=== PATIENT | male | born 1950 | race Caucasian/White ===

== ENCOUNTER 2017-01-11 08:11 | Inpatient (IN) | payer OTHER, MEDICARE ==
[~2017-01-11] VITALS: Ht 175.3 cm; Wt 90.7 kg
[2017-01-13] MEDS ORDERED: DICL75TA PO (14:42)
[2017-01-13] MEDS ORDERED: ASPI81TA11 PO (14:42)
[2017-01-13] MEDS ORDERED: TERA5CAP3 PO (14:42)
[2017-01-13] MEDS ORDERED: LEVO100T5 PO (14:42)
[2017-01-13] MEDS ORDERED: RANI150T PO (14:42)
[2017-01-13] MEDS ORDERED: GLUC15009 PO (14:42)
[2017-01-13] MEDS ORDERED: LISI10TA3 PO (14:42)
[2017-01-13] MEDS ORDERED: MULTTAB23 PO (14:42)
[2017-01-13] MEDS ORDERED: BUPR75TA PO (14:42)
[2017-01-13] MEDS ORDERED: GNP5TAB6 PO (14:42)
[2017-01-13] MEDS ORDERED: TRAM50TA PO (14:42)
[2017-01-13] MEDS ORDERED: GABA800T PO (14:42)
[2017-01-13] MEDS ORDERED: OMEGCAP19 PO (14:42)
[2017-01-13] MEDS ORDERED: MIRA33504 PO (14:42)
[2017-01-13] MEDS ORDERED: MAGN1TAB14 PO (14:42)
[2017-01-13] MEDS ORDERED: SERT-129 PO (14:42)
[2017-01-16] MEDS ORDERED: HYDR-3366 PO (07:05)
[2017-01-16] MEDS ORDERED: ASPI81CH37 CHEW (07:06)
[2017-01-16] MEDS ORDERED: ENOX40P SQ (07:06)
[2017-01-16] MEDS ORDERED: ALUMINUM/MAGNESIUM/SIMETH 30 ML CUP PO PRN (07:15)
[2017-01-16] MEDS ORDERED: NALOXONE HCL 0.4 MG/ML AMP IV PRN (07:15)
[2017-01-16] MEDS ORDERED: diphenhydrAMINE HCL 50 MG/ML VIAL IV PRN (07:15)
[2017-01-16] MEDS ORDERED: SODIUM CHLORIDE 0.9% FLUSH 5 ML FLUSH IVF PRN (07:15)
[2017-01-16] MEDS ORDERED: ONDANSETRON HCL 4 MG/2 ML VIAL IVP PRN (07:15)
[2017-01-16] MEDS ORDERED: HYDROmorphone HCL PF 2 MG/ML VIAL IV PRN (07:15)
[2017-01-16] MEDS ORDERED: Post-op Orders (for Pharmacy) MISC XX ONE (07:15)
[2017-01-16] MEDS ORDERED: PREV10CA IV (07:54)
[2017-01-16] MEDS ORDERED: PREVAGIN IV (07:54)
[2017-01-16 07:56] VITALS: BP 148/86; PULSE 70; RESP 20; TEMP 98.1; O2SAT 98
[2017-01-16] MEDS: CHLORHEXIDINE GLUCONATE 4% SOLN 120 ML BTL TOPICAL SCH (08:00)
[2017-01-16] MEDS ORDERED: SODIUM CHLORID 0.9% 500 ML IV PRN (08:00)
[2017-01-16] MEDS ORDERED: METOPROLOL TARTRATE 25 MG TAB PO PRN (08:00)
[2017-01-16] MEDS: ROPIVACAINE PERI-ARTICULAR INJECTION. P-ARTICULR SCH ×10 (08:00→10:55)
[2017-01-16] MEDS ORDERED: DEXAMETHASONE SOD PHOS 20 MG/5 ML VIAL IV ONE (08:00)
[2017-01-16] MEDS ORDERED: LACTATED RINGER'S 1000 ML IV PRN (08:00)
[2017-01-16] MEDS ORDERED: INSULIN HUMAN REGULAR 1,000 UNITS/10 ML VIAL SQ PRN (08:00)
[2017-01-16] MEDS: POVIDONE IODINE 7.5% SCRUB 118 ML BOTTLE TOPICAL SCH (08:00)
[2017-01-16] MEDS ORDERED: CHLORHEXIDINE GLUCONATE 2 % 1 PACK (2 CLOTHS) TOPICAL PRN (08:00)
[2017-01-16] MEDS: TRANEXAMIC ACID IV SCH ×2 (08:00→10:35)
[2017-01-16] MEDS: SODIUM CHLORIDE 0.9% IV SCH ×2 (08:00→10:35)
[2017-01-16] MEDS: TRANEXAMIC PERI-ARTICULAR 3,000 MG/NS 100 ML P-ARTICULR SCH ×4 (08:00→10:55)
[2017-01-16] MEDS ORDERED: ceFAZolin 2 GM PREMIX 50 ML IV SCH (08:00)
[2017-01-16] MEDS ORDERED: VANCOMYCIN 1000 MG/NS 250 ML (for <70 kg) IV SCH ×2 (08:00)
[2017-01-16] MEDS: POVIDONE IODINE 5% (ANTISEPSIS KIT) 4 APPLICATIONS EACH NARE PRN (08:20)
[2017-01-16] MEDS ORDERED: GENTAMICIN SULFATE 80 MG/2 ML VIAL ONE (09:44)
[2017-01-16] MEDS ORDERED: FAMOTIDINE 20 MG/2 ML VIAL ONE (09:46)
[2017-01-16] MEDS ORDERED: MIDAZOLAM HCL 5 MG/5 ML VIAL ONE (09:46)
[2017-01-16] MEDS ORDERED: ACETAMINOPHEN 1000 MG/100 ML VIAL IV ONE (09:46)
[2017-01-16] MEDS ORDERED: DEXAMETHASONE SOD PHOS 4 MG/ML VIAL ONE (09:47)
[2017-01-16] MEDS ORDERED: fentaNYL CITRATE 250 MCG/5 ML AMP ONE ×2 (09:47→12:44)
[2017-01-16] MEDS ORDERED: NEOSTIGMINE 3 MG/3 ML SYR IV ONE (12:49)
[2017-01-16] MEDS ORDERED: ONDANSETRON HCL 4 MG/2 ML VIAL IV PUSH ONE (12:49)
[2017-01-16] MEDS ORDERED: PROPOFOL 200 MG/20 ML AMP IV ONE (12:49)
[2017-01-16] MEDS ORDERED: *MEPERIDINE 25 MG INJ VIAL PERIprocedural Use ONLY ONE (12:49)
[2017-01-16] MEDS ORDERED: *ONDANSETRON 4 MG VIAL PERIprocedural Use ONLY ONE (12:49)
[2017-01-16] MEDS ORDERED: LACTATED RINGER'S 1000 ML INJ 1,000 ML IV ONE (12:50)
--- NOTE | 2017-01-16 13:09 | HHI.DCPOC ---
Discharge Care Plan Diagnosis: (1) Primary localized osteoarthrosis, lower leg Your Health Problems Are: Difficulty with ADL Goals to Promote Your Health * To prevent worsening of your condition and complications * To maintain your health at the optimal level Directions to Meet Your Goals Take your medications as prescribed Follow your dietary instruction Follow activity as directed Keep your appointments as scheduled Take your immunizations and boosters as scheduled If your symptoms worsen call your PCP, if no PCP go to Urgent Care Center or Emergency Room Smoking is Dangerous to Your Health. Avoid second hand smoke Call the 24-hour hour crisis hotline for domestic abuse at [facility] Jan 16, 2017 13:09
[2017-01-16] MEDS ORDERED: COMMODE 3-IN-11 MIS (13:11)
[2017-01-16] MEDS ORDERED: WALKER WHEELS/F1 MIS (13:11)
[2017-01-16] MEDS ORDERED: CPMMACHINE (13:12)
[2017-01-16] MEDS ORDERED: *morphine SULFATE 8 MG/ML PERIprocedure ONLY ONE ×2 (13:12→13:28)
--- NOTE | 2017-01-16 13:30 | RADRPT ---
EXAM DATE/TIME: 01/16/2017 12:39 [place] COMPARISON: No previous studies available for comparison. INDICATIONS : Post op right knee replacement. MEDICAL HISTORY : None. SURGICAL HISTORY : None. ENCOUNTER: Initial ACUITY: 1 day PAIN SCORE: Non-responsive. LOCATION: Right knee. FINDINGS: AP and lateral views of the right knee were obtained and demonstrate that the patient is status post arthroplasty. The femoral and tibial component are intact and in normal alignment. There are postoper ative changes involving the patella. There is anterior soft tissue swelling with multiple gas bubbles . Board Certified Radiologist. This report was verified electronically. CONCLUSION: Expected postoperative changes status post arthroplasty. Jasiel Jones MD on January 16, 2017 at 13:28
[2017-01-16] MEDS ORDERED: DO NOT ADM ANY ANTICOAGULANT DRUGS PRN (13:45)
--- NOTE | 2017-01-16 14:18 | EKG ---
Date Performed: 01/16/2017 Time Performed: 07:34:12 PTAGE: 66 years EKG: Sinus rhythm NORMAL ECG NO PREVIOUS TRACING DOCTOR: Daniel Daniels Interpretating Date/Time 01/16/2017 14:17:22
[2017-01-16 14:40] VITALS: BP 130/68; PULSE 88; RESP 17; TEMP 97.3; O2SAT 99
[2017-01-16] MEDS: GABAPENTIN 400 MG CAP PO SCH ×2 (16:04→22:35)
[2017-01-16] MEDS: ceFAZolin 2 GM PREMIX 50 ML IV SCH ×2 (16:07→22:17)
--- NOTE | 2017-01-16 16:25 | PD.CONS ---
HPI Service [facility] Consult Requested By Dr. Christianson Reason for Consult medical management Primary Care Physician Mik Gonzalez M.D. 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 Patient seen in PACU. He c/o pain otherwise no complaints. Patient stated pain is in his usually location. [facility] consulted for medical management. Review of Systems Constitutional: DENIES: Diaphoretic episodes, Fatigue, Fever, Weight gain, Weight loss, Chills, Dizziness, Change in appetite, Night Sweats Endocrine: DENIES: Heat/cold intolerance, Polydipsia, Polyuria, Polyphagia Eyes: DENIES: Blurred vision, Diplopia, Eye inflammation, Eye pain, Vision loss , Photosensitivity, Double Vision Ears, nose, mouth, throat: DENIES: Tinnitus, Hearing loss, Vertigo, Nasal discharge, Oral lesions, Throat pain, Hoarseness, Ear Pain, Running Nose, Epistaxis, Sinus Pain, Toothache, Odynophagia Respiratory: DENIES: Apneas, Cough, Snoring, Wheezing, Hemoptysis, Sputum production, Shortness of breath Cardiovascular: DENIES: Chest pain, Palpitations, Syncope, Dyspnea on Exertion , PND, Lower Extremity Edema, Orthopnea, Claudication Gastrointestinal: DENIES: Abdominal pain, Black stools, Bloody stools, Constipation, Diarrhea, Nausea, Vomiting, Difficulty Swallowing, Anorexia Genitourinary: DENIES: Sexual dysfunction, Urinary frequency, Urinary incontinence, Urgency, Hematuria, Dysuria, Nocturia, Penile Discharge, Testicular Pain, Testicular Swelling Musculoskeletal: COMPLAINS OF: Joint pain, Back pain, DENIES: Muscle aches, Stiffness, Joint Swelling, Neck pain Integumentary: DENIES: Abnormal pigmentation, Nail changes, Pruritus, Rash Hematologic/lymphatic: DENIES: Bruising, Lymphadenopathy Immunologic/allergic: DENIES: Eczema, Urticaria Neurologic: DENIES: Abnormal gait, Headache, Localized weakness, Paresthesias, Seizures, Speech Problems, Tremor, Poor Balance Psychiatric: DENIES: Anxiety, Confusion, Mood changes, Depression, Hallucinations, Agitation, Suicidal Ideation, Homicidal Ideation, Delusions Past Family Social History Allergies: Coded Allergies: Ambien (Verified Allergy, Severe, Hallucinations, 01/16/17) Oxybutynin (Verified Allergy, Severe, Somnolence, 01/16/17) depression and suicidal ideations Uncoded Allergies: melons (Allergy, Severe, Anaphylaxis, 01/13/17) Past Medical History HTN, hypothyroidism, GERD, depression, chronic inflammation demyelinating polyneuropathy, OA of knee, lumbar spine ankylosis Past Surgical History scope of left knee in 2014 back surgery in 2009 LAMI and screws Reported Medications Reported Meds & Active Scripts Active Aspirin Low Dose (Aspirin) 81 Mg Chew 81 Mg CHEW BID Lovenox Inj (Enoxaparin Sodium) 40 Mg/0.4 Ml Syr 40 Mg SQ DAILY [place] (Hydrocodone-Acetaminophen) 10-325 Mg Tab 1 Tab PO Q4H PRN Reported [Prevagin] 45 Gm IV MONTHLY Miralax Powder (Polyethylene Glycol 3350 Powder) 17 Gm Powd 2.5 Gm PO DAILY Mix and dissolve one measuring cap-ful (17 grams) in water or juice. Tramadol (Tramadol HCl) 50 Mg Tab 100 Mg PO Q6H PRN Gnp Melatonin Maximum Str (Melatonin) 5 Mg Tab 1 Tab PO DAILY [place] 3-6-9 Complex ([place] 3 Fatty Acids-Anchor Point 6 FA) 1 Cap Cap 2 Cap PO DAILY Magnesium 400 Mg Tab 400 Mg PO DAILY Glucosamine 1,500 Mg Tab 1,500 Mg PO DAILY Multi For Him 50+ (Multiple Vitamins W/ Minerals) 1 Tab Tab 1 Tab PO DAILY Aspirin EC (Aspirin) 81 Mg Tabdr 81 Mg PO DAILY Ranitidine (Ranitidine HCl) 150 Mg Tab 150 Mg PO BID Diclofenac Sodium DR (Diclofenac Sodium) 75 Mg Tabdr 75 Mg PO BID Sertraline (Sertraline HCl) 100 Mg Tab 100 Mg PO DAILY Bupropion HCl 75 Mg Tab 150 Mg PO TID Gabapentin 800 Mg Tab 800 Mg PO TID Terazosin (Terazosin HCl) 5 Mg Cap 5 Mg PO TID Lisinopril 10 Mg Tab 10 Mg PO DAILY Levothyroxine (Levothyroxine Sodium) 100 Mcg Tab 100 Mcg PO DAILY Active Ordered Medications Current Medications Bupropion HCl (Wellbutrin) 150 mg TID PO ; Start 01/16/17 at 09:00 Gabapentin (Neurontin) 800 mg TID PO Last administered on 01/16/17t 16:04; Start 01/16/17 at 09:00 Levothyroxine Sodium (Synthroid) 100 mcg DAILY@06 PO ; Start 01/16/17 at 09:00 Lisinopril (Prinivil) 10 mg DAILY PO ; Start 01/16/17 at 09:00 Polyethylene Glycol (Miralax) 2.5 gm DAILY PO ; Start 01/16/17 at 09:00 Sertraline HCl (Zoloft) 100 mg DAILY PO ; Start 01/16/17 at 09:00 Terazosin HCl (Hytrin) 5 mg TID PO ; Start 01/16/17 at 09:00 Famotidine 20 mg 20 mg BID PO HRT; Start 01/16/17 at 09:00 Sodium Chloride (NS 1000 ml Inj) 1,000 ml @ 100 mls/hr Q10H IV ; Start at 07:02 IV Flush (NS Flush) 2 ml UNSCH PRN IVF FLUSH AFTER USING IV ACCESS; Start 01/16 at 07:15 IV Flush 2 ml 2 ml BID IVF ; Start 01/16/17 at 09:00 Cefazolin Sodium/ Dextrose (Ancef 2 Gm Premix) 50 ml @ 100 mls/hr Q6H IV Last administered on 01/16/17t 16:07; Start 01/16/17 at 15:00; Stop 01/17/17 at 03:29 Miscellaneous Information (Post-op Orders (for Pharmacy)) STAT ONCE XX ; Start 01/16/17 at 07:15; Stop 01/16/17 at 09:30; Status DC Enoxaparin Sodium (Lovenox Inj) 40 mg Q24H SQ ; Start 01/17/17 at 12:00 Hydromorphone HCl (Dilaudid Pf Inj) 1 mg Q3H PRN IV PAIN GREATER THAN 7; Start 01/16/17 at 07:15 Acetaminophen/ Hydrocodone Bitart ([place] 7.5-325 Mg) 1 tab Q4H PRN PO PAIN LESS THAN 5 ON SCALE; Start 01/16/17 at 07:15 Acetaminophen/ Hydrocodone Bitart ([place] 7.5-325 Mg) 2 tab Q4H PRN PO PAIN SCALE 5 TO 10; Start 01/16/17 at 07:15 Multivitamins/ Minerals Therapeutic (Theragran M Tab) 1 tab BID PO ; Start 01/17 at 21:00; Stop 03/18/17 at 20:59 Ondansetron HCl (Zofran Inj) 4 mg Q6H PRN IVP NAUSEA OR VOMITING; Start at 07:15 Al Hydrox/Mg Hydrox/Simethicone (Mag-Al Plus Susp Liq) 30 ml Q6H PRN PO INDIGESTION; Start 01/16/17 at 07:15 Naloxone HCl (Narcan Inj) 0.4 mg UNSCH PRN IV RESPIRATORY RATE LESS THAN 10; Start 01/16/17 at 07:15 Diphenhydramine HCl 25 mg 25 mg Q6H PRN IV ITCHING; Start 01/16/17 at 07:15 Lactated Ringer's 1,000 ml @ 30 mls/hr Q24H PRN IV SEE LABEL COMMENTS Last administered on 01/16/17 08:20; Start 01/16/17 at 08:00; Stop 01/19/17 at 07:59 Sodium Chloride (NS 500 ml Inj) 500 ml @ 30 mls/hr [id number] PRN IV SEE LABEL COMMENTS; Start 01/16/17 at 08:00; Stop 01/19/17 at 07:59 Metoprolol Tartrate (Lopressor) 25 mg METALLURGY TEACHER PRN PO SEE LABEL COMMENTS; Start 01/16/17 at 08:00; Stop 01/19/17 at 07:59 Povidone Iodine (Betadine 5% Antisepsis Kit) 1 applic METALLURGY TEACHER PRN EACH NARE SEE LABEL COMMENTS Last administered on 01/16/17 08:20; Start 01/16/17 at 08:00 ; Stop 01/19/17 at 07:59 Chlorhexidine Gluconate (Chlorhexidine 2% Cloth) 3 pack METALLURGY TEACHER PRN TOPICAL SEE LABEL COMMENTS Last administered on 01/16/17 08:21; Start 01/16/17 at 08:00 ; Stop 01/19/17 at 07:59 Insulin Human Regular (NovoLIN R INJ) See Protocol Table ... METALLURGY TEACHER PRN SQ SEE PROTOCOL TABLE; Start 01/16/17 at 08:00; Stop 01/19/17 at 07:59 Povidone Iodine (Betadine 7.5% Scrub) 1 applic ONCE TOPICAL ; Start 01/16/17 at 08:00; Stop 01/19/17 at 07:59 Chlorhexidine Gluconate 1 applic 1 applic ONCE TOPICAL Last administered on 08:00; Start 01/16/17 at 08:00; Stop 01/19/17 at 07:59 Cefazolin Sodium/ Dextrose 50 ml @ 100 mls/hr METALLURGY TEACHER IV Last administered on 01/16/17 08:50; Start 01/16/17 at 08:00; Stop 01/19/17 at 07:59 Vancomycin HCl 1000 mg/Sodium Chloride 250 ml @ 250 mls/hr METALLURGY TEACHER IV Last administered on 01/16/17 08:58; Start 01/16/17 at 08:00; Stop 01/19/17 at 07:59 Tranexamic Acid 1374 mg/Sodium Chloride 113.74 ml @ 200 mls/ hr ONCE IV Last administered on 01/16/17 10:35; Start 01/16/17 at 08:00; Stop 01/16/17 at 14:00 ; Status DC Ropivacaine 24.63 ml/Ketorolac Tromethamine 30 mg/Epinephrine HCl 0.5 mg/ Clonidine 80 mcg/ Sodium Chloride 100 ml @ 200 mls/hr ONCE P-ARTICULR Last administered on 01/16/17 10:55; Start 01/16/17 at 08:00; Stop 01/16/17 at 14:00 ; Status DC Tranexamic Acid/ Sodium Chloride (Cyklokapron Inj/ NS Inj) 130 ml @ 260 mls/hr ONCE P-ARTICULR Last administered on 01/16/17 10:55; Start 01/16/17 at 08:00; Stop 01/16/17 at 14:00; Status DC Dexamethasone Sodium Phosphate (Decadron Inj) 10 mg ONCE ONCE IV Last administered on 01/16/17 08:10; Start 01/16/17 at 08:00; Stop 01/16/17 at 08:01 ; Status DC Gentamicin Sulfate (Gentamicin Inj) 240 mg STK-MED ONCE .ROUTE Last administered on 01/16/17 10:55; Start 01/16/17 at 09:44; Stop 01/16/17 at 09:45 ; Status DC Acetaminophen (Ofirmev Inj) 1,000 mg STK-MED ONCE IV ; Start 01/16/17 at 09:46; Stop 01/16/17 at 09:47; Status DC Famotidine (Pepcid Inj) 20 mg STK-MED ONCE .ROUTE ; Start 01/16/17 at 09:46; Stop 01/16/17 at 09:47; Status DC Midazolam HCl (Versed Inj) 5 mg STK-MED ONCE .ROUTE ; Start 01/16/17 at 09:46; Stop 01/16/17 at 09:47; Status DC Fentanyl Citrate (fentaNYL INJ) 250 mcg STK-MED ONCE .ROUTE ; Start 01/16/17 at 09:47; Stop 01/16/17 at 09:48; Status DC Dexamethasone Sodium Phosphate (Decadron Inj) 4 mg STK-MED ONCE .ROUTE ; Start 01/16/17 at 09:47; Stop 01/16/17 at 09:48; Status DC Fentanyl Citrate (fentaNYL INJ) 500 mcg STK-MED ONCE .ROUTE ; Start 01/16/17 at 12:44; Stop 01/16/17 at 12:45; Status DC Meperidine HCl (*DEMEROL INJ PERIprocedural ONLY) 25 mg STK-MED ONCE .ROUTE Last administered on 01/16/17 12:49; Start 01/16/17 at 12:49; Stop 01/16/17 at 12:50; Status DC Ondansetron HCl (*ZOFRAN INJ PERIprocedural ONLY) 4 mg STK-MED ONCE .ROUTE Last administered on 01/16/17 12:49; Start 01/16/17 at 12:49; Stop 01/16/17 at 12:50; Status DC Morphine Sulfate (*morphine INJ PERIprocedure ONLY) 8 mg STK-MED ONCE .ROUTE Last administered on 01/16/17 13:12; Start 01/16/17 at 13:12; Stop 01/16/17 at 13:13; Status DC Morphine Sulfate (*morphine INJ PERIprocedure ONLY) 8 mg STK-MED ONCE .ROUTE Last administered on 01/16/17 13:28; Start 01/16/17 at 13:28; Stop 01/16/17 at 13:29; Status DC Miscellaneous Information ALL NURSING DEPARTME... UNSCH PRN .XX SEE LABEL COMMENTS; Start 01/16/17 at 13:45; Stop 01/17/17 at 13:44 Family History mother from suicide at age of 46. father had emphysema at age of 72. Social History lives at home. retired. stopped smoking 6 years ago. used to smoke 1 PPD. no alcohol or illicit drug use. Physical Exam Vital Signs Vital Signs Date Time Temp Pulse Resp B/P Pulse Ox O2 Delivery O2 Flow Rate FiO2 01/16/17 14:00 92 14 130/73 97 Nasal Cannula 3 01/16/17 13:30 98.2 92 14 135/78 97 Nasal Cannula 3 01/16/17 13:15 93 14 148/78 97 Nasal Cannula 3 01/16/17 13:00 93 14 143/84 97 Nasal Cannula 3 01/16/17 12:45 95 14 157/83 97 Nasal Cannula 3 01/16/17 12:33 98.4 101 14 153/76 97 Nasal Cannula 3 01/16/17 07:56 98.1 70 20 148/86 98 Physical Exam GENERAL: This is a well-nourished, well-developed patient, in no apparent distress. SKIN: No rashes, ecchymoses or lesions. Cool and dry. HEAD: Atraumatic. Normocephalic. No temporal or scalp tenderness. EYES: Pupils equal round and reactive. Extraocular motions intact. No scleral icterus. No injection or drainage. ENT: Nose without bleeding, purulent drainage or septal hematoma. Throat without erythema, tonsillar hypertrophy or exudate. Uvula midline. Airway patent. NECK: Trachea midline. No JVD or lymphadenopathy. Supple, nontender, no meningeal signs. CARDIOVASCULAR: Regular rate and rhythm without murmurs, gallops, or rubs. RESPIRATORY: Clear to auscultation. Breath sounds equal bilaterally. No wheezes , rales, or rhonchi. GASTROINTESTINAL: Abdomen soft, non-tender, nondistended. No hepato-splenomegaly , or palpable masses. No guarding. MUSCULOSKELETAL:right knee in splint. NEUROLOGICAL: Awake and alert. Cranial nerves II through XII intact. Motor and sensory grossly within normal limits. Five out of 5 muscle strength in all muscle groups. Normal speech. Laboratory Laboratory Tests Test 01/16/17 08:00 Blood Type A POSITIVE Antibody Screen NEGATIVE Blood Bank Comment Imaging Last Impressions Knee X-Ray 01/16/17 0702 Signed Impressions: Service Date/Time: Monday, January 16, 2017 12:39 - CONCLUSION: Expected postoperative changes status post arthroplasty. Jasiel Jones MD Assessment and Plan Assessment and Plan 66 y/o with severe post traumatic right knee OA -s/p total right knee arthroplasty -being managed by Ortho. HTN/depression. hypothyrodism/gerd/chronic pain/ chronic inflammation demyelinating polyneuropathy -home medication already resumed DVT prophylaxis per Ortho. Discussed Condition With patient Karol Kingston MD Jan 16, 2017 16:24
[2017-01-16 19:00] VITALS: BP 120/66; PULSE 66; RESP 16; TEMP 96.7; O2SAT 98
[2017-01-16 19:57] VITALS: O2SAT 99
[2017-01-16] MEDS: SODIUM CHLORIDE 0.9% FLUSH 5 ML FLUSH IVF SCH (21:00)
[2017-01-16] MEDS: FAMOTIDINE 20 MG TAB PO SCH (22:23)
[2017-01-16] MEDS: TERAZOSIN HCL 5 MG CAP PO SCH (22:35)
[2017-01-16] MEDS: buPROPion HCL 75 MG TAB PO SCH (22:35)
[2017-01-16] MEDS: ACETAMINOPHEN/HYDROcodone 325 MG/7.5 MG TAB PO PRN (22:36)
[2017-01-17] VITALS (9 sets, daily range): BP systolic 126–156; BP diastolic 60–73; PULSE 63–75; RESP 15–19; TEMP 96.7–98.4; O2SAT 95–100
[2017-01-17] MEDS: ACETAMINOPHEN/HYDROcodone 325 MG/7.5 MG TAB PO PRN ×6 (02:26→23:43)
[2017-01-17] MEDS: ceFAZolin 2 GM PREMIX 50 ML IV SCH (02:26)
[2017-01-17] MEDS: SODIUM CHLOR 0.9% 1000 ML INJ 1,000 ML IV SCH ×2 (03:02→23:02)
[2017-01-17 06:23] LABS: HEMATOCRIT 28.7 % (39.0-51.0); MEAN CELL VOLUME 93.9 FL (80.0-100.0); PLATELET COUNT 126 TH/MM3 (150-450); RED BLOOD COUNT 3.05 MIL/MM3 (4.50-5.90); RED CELL DISTRIBUTION WIDTH 13.4 % (11.6-17.2); REVIEW FLAG FINAL; WHITE BLOOD COUNT 8.1 TH/MM3 (4.0-11.0)
[2017-01-17] MEDS: LEVOTHYROXINE SODIUM 100 MCG TAB PO SCH (06:40)
[2017-01-17 06:41] LABS: BICARBONATE 27.6 MEQ/L (21.0-32.0); POTASSIUM 3.7 MEQ/L (3.5-5.1)
[2017-01-17] MEDS: CHLORHEXIDINE GLUCONATE 4% SOLN 120 ML BTL TOPICAL SCH (08:00)
[2017-01-17] MEDS: POVIDONE IODINE 7.5% SCRUB 118 ML BOTTLE TOPICAL SCH (08:00)
--- NOTE | 2017-01-17 08:28 | PD.ORT.PN ---
Subjective Post Op Day #: 1 Subjective Remarks pain in R knee tolerable. denies cp and sob. Objective Vitals Vital Signs Date Time Temp Pulse Resp B/P Pulse Ox O2 Delivery O2 Flow Rate FiO2 01/17/17 08:04 95 21 01/17/17 04:00 97.1 66 15 128/68 100 01/17/17 00:00 97.0 68 19 126/60 96 01/16/17 19:57 99 Nasal Cannula 3.00 01/16/17 19:00 96.7 66 16 120/66 98 01/16/17 14:40 97.3 88 17 130/68 99 01/16/17 14:00 92 14 130/73 97 Nasal Cannula 3 01/16/17 13:30 98.2 92 14 135/78 97 Nasal Cannula 3 01/16/17 13:15 93 14 148/78 97 Nasal Cannula 3 01/16/17 13:00 93 14 143/84 97 Nasal Cannula 3 01/16/17 12:45 95 14 157/83 97 Nasal Cannula 3 01/16/17 12:33 98.4 101 14 153/76 97 Nasal Cannula 3 I/O 01/16/17 01/16/17 01/16/17 01/17/17 01/17/17 01/17/17 07:00 15:00 23:00 07:00 15:00 23:00 Intake Total 1500 ml 480 ml 400 ml Output Total 800 ml 600 ml 600 ml Balance 700 ml -120 ml -200 ml Intake Oral 480 ml 400 ml Other 1500 ml Output Urine Total 700 ml 600 ml 600 ml Estimated Blood Loss 100 ml # Bowel Movements 0 Result Diagram: 01/17/17 0546 01/17/17 0546 Objective Remarks in bed, nad dressing c/d/i neg homans nvi Assessment & Plan Ortho Post Op Day #: 1 Problem List: Assessment and Plan s/p R TKA wbat daily dressing changes lovenox d/c planning to snf [id number] signed rx in chart f/up dr. arroyo 2 weeks [facility] Jan 17, 2017 08:28
--- NOTE | 2017-01-17 10:07 | HHI.PR ---
Subjective Remarks f/u for medical management patient c.o about pain of his right knee after doing physical therapy. he stated it is getting better. otherwise no complaints. denied any SOB or chest pain. Objective Vitals Vital Signs Date Time Temp Pulse Resp B/P Pulse Ox O2 Delivery O2 Flow Rate FiO2 01/17/17 08:04 95 21 01/17/17 08:00 96.7 63 18 126/65 96 01/17/17 04:00 97.1 66 15 128/68 100 01/17/17 00:00 97.0 68 19 126/60 96 01/16/17 19:57 99 Nasal Cannula 3.00 01/16/17 19:00 96.7 66 16 120/66 98 01/16/17 14:40 97.3 88 17 130/68 99 01/16/17 14:00 92 14 130/73 97 Nasal Cannula 3 01/16/17 13:30 98.2 92 14 135/78 97 Nasal Cannula 3 01/16/17 13:15 93 14 148/78 97 Nasal Cannula 3 01/16/17 13:00 93 14 143/84 97 Nasal Cannula 3 01/16/17 12:45 95 14 157/83 97 Nasal Cannula 3 01/16/17 12:33 98.4 101 14 153/76 97 Nasal Cannula 3 I/O 01/16/17 01/16/17 01/16/17 01/17/17 01/17/17 01/17/17 07:00 15:00 23:00 07:00 15:00 23:00 Intake Total 1500 ml 480 ml 400 ml Output Total 800 ml 600 ml 600 ml Balance 700 ml -120 ml -200 ml Intake Oral 480 ml 400 ml Other 1500 ml Output Urine Total 700 ml 600 ml 600 ml Estimated Blood Loss 100 ml # Bowel Movements 0 Result Diagram: 01/17/17 0546 01/17/17 0546 Objective Remarks GENERAL: in NAD and sitting comfortable in the chair. SKIN: Warm and dry. NECK: Supple, trachea midline. No JVD or lymphadenopathy. CARDIOVASCULAR: Regular rate and rhythm without murmurs, gallops, or rubs. RESPIRATORY: Breath sounds equal bilaterally. No accessory muscle use. GASTROINTESTINAL: Abdomen soft, non-tender, nondistended. MUSCULOSKELETAL:right knee in amber wrap. + 2 DP pulses. Medications and IVs Current Medications Bupropion HCl (Wellbutrin) 150 mg TID PO Last administered on 01/16/17 22:35; Start 01/16/17 at 09:00 Gabapentin (Neurontin) 800 mg TID PO Last administered on 01/16/17 22:35; Start 01/16/17 at 09:00 Levothyroxine Sodium (Synthroid) 100 mcg DAILY@06 PO Last administered on 06:40; Start 01/16/17 at 09:00 Lisinopril (Prinivil) 10 mg DAILY PO ; Start 01/16/17 at 09:00 Polyethylene Glycol (Miralax) 2.5 gm DAILY PO ; Start 01/16/17 at 09:00 Sertraline HCl (Zoloft) 100 mg DAILY PO ; Start 01/16/17 at 09:00 Terazosin HCl (Hytrin) 5 mg TID PO Last administered on 01/16/17 22:35; Start 01/16/17 at 09:00 Famotidine 20 mg 20 mg BID PO HRT Last administered on 01/16/17 22:23; Start at 09:00 Sodium Chloride (NS 1000 ml Inj) 1,000 ml @ 100 mls/hr Q10H IV Last administered on 01/17/17 03:02; Start 01/16/17 at 07:02 IV Flush (NS Flush) 2 ml UNSCH PRN IVF FLUSH AFTER USING IV ACCESS; Start 01/16 at 07:15 IV Flush 2 ml 2 ml BID IVF ; Start 01/16/17 at 09:00 Cefazolin Sodium/ Dextrose (Ancef 2 Gm Premix) 50 ml @ 100 mls/hr Q6H IV Last administered on 01/17/17 02:26; Start 01/16/17 at 15:00; Stop 01/17/17 at 03:29 ; Status DC Miscellaneous Information (Post-op Orders (for Pharmacy)) STAT ONCE XX ; Start 01/16/17 at 07:15; Stop 01/16/17 at 09:30; Status DC Enoxaparin Sodium (Lovenox Inj) 40 mg Q24H SQ ; Start 01/17/17 at 12:00 Hydromorphone HCl (Dilaudid Pf Inj) 1 mg Q3H PRN IV PAIN GREATER THAN 7; Start 01/16/17 at 07:15 Acetaminophen/ Hydrocodone Bitart ([place] 7.5-325 Mg) 1 tab Q4H PRN PO PAIN LESS THAN 5 ON SCALE Last administered on 01/17/17 06:46; Start 01/16/17 at 07: 15 Acetaminophen/ Hydrocodone Bitart ([place] 7.5-325 Mg) 2 tab Q4H PRN PO PAIN SCALE 5 TO 10; Start 01/16/17 at 07:15 Multivitamins/ Minerals Therapeutic (Theragran M Tab) 1 tab BID PO ; Start 01/17 at 21:00; Stop 03/18/17 at 20:59 Ondansetron HCl (Zofran Inj) 4 mg Q6H PRN IVP NAUSEA OR VOMITING; Start at 07:15 Al Hydrox/Mg Hydrox/Simethicone (Mag-Al Plus Susp Liq) 30 ml Q6H PRN PO INDIGESTION; Start 01/16/17 at 07:15 Naloxone HCl (Narcan Inj) 0.4 mg UNSCH PRN IV RESPIRATORY RATE LESS THAN 10; Start 01/16/17 at 07:15 Diphenhydramine HCl 25 mg 25 mg Q6H PRN IV ITCHING; Start 01/16/17 at 07:15 Lactated Ringer's 1,000 ml @ 30 mls/hr Q24H PRN IV SEE LABEL COMMENTS Last administered on 01/16/17 08:20; Start 01/16/17 at 08:00; Stop 01/19/17 at 07:59 Sodium Chloride (NS 500 ml Inj) 500 ml @ 30 mls/hr [id number] PRN IV SEE LABEL COMMENTS; Start 01/16/17 at 08:00; Stop 01/19/17 at 07:59 Metoprolol Tartrate (Lopressor) 25 mg ASSISTANT CORPORATE SECRETARY PRN PO SEE LABEL COMMENTS; Start 01/16/17 at 08:00; Stop 01/19/17 at 07:59 Povidone Iodine (Betadine 5% Antisepsis Kit) 1 applic ASSISTANT CORPORATE SECRETARY PRN EACH NARE SEE LABEL COMMENTS Last administered on 01/16/17 08:20; Start 01/16/17 at 08:00 ; Stop 01/19/17 at 07:59 Chlorhexidine Gluconate (Chlorhexidine 2% Cloth) 3 pack ASSISTANT CORPORATE SECRETARY PRN TOPICAL SEE LABEL COMMENTS Last administered on 01/16/17 08:21; Start 01/16/17 at 08:00 ; Stop 01/19/17 at 07:59 Insulin Human Regular (NovoLIN R INJ) See Protocol Table ... ASSISTANT CORPORATE SECRETARY PRN SQ SEE PROTOCOL TABLE; Start 01/16/17 at 08:00; Stop 01/19/17 at 07:59 Povidone Iodine (Betadine 7.5% Scrub) 1 applic ONCE TOPICAL ; Start 01/16/17 at 08:00; Stop 01/19/17 at 07:59 Chlorhexidine Gluconate 1 applic 1 applic ONCE TOPICAL Last administered on 08:00; Start 01/16/17 at 08:00; Stop 01/19/17 at 07:59 Cefazolin Sodium/ Dextrose 50 ml @ 100 mls/hr ASSISTANT CORPORATE SECRETARY IV Last administered on 01/16/17 08:50; Start 01/16/17 at 08:00; Stop 01/19/17 at 07:59 Vancomycin HCl 1000 mg/Sodium Chloride 250 ml @ 250 mls/hr ASSISTANT CORPORATE SECRETARY IV Last administered on 01/16/17 08:58; Start 01/16/17 at 08:00; Stop 01/19/17 at 07:59 Tranexamic Acid 1374 mg/Sodium Chloride 113.74 ml @ 200 mls/ hr ONCE IV Last administered on 01/16/17 10:35; Start 01/16/17 at 08:00; Stop 01/16/17 at 14:00 ; Status DC Ropivacaine 24.63 ml/Ketorolac Tromethamine 30 mg/Epinephrine HCl 0.5 mg/ Clonidine 80 mcg/ Sodium Chloride 100 ml @ 200 mls/hr ONCE P-ARTICULR Last administered on 01/16/17 10:55; Start 01/16/17 at 08:00; Stop 01/16/17 at 14:00 ; Status DC Tranexamic Acid/ Sodium Chloride (Cyklokapron Inj/ NS Inj) 130 ml @ 260 mls/hr ONCE P-ARTICULR Last administered on 01/16/17 10:55; Start 01/16/17 at 08:00; Stop 01/16/17 at 14:00; Status DC Dexamethasone Sodium Phosphate (Decadron Inj) 10 mg ONCE ONCE IV Last administered on 01/16/17 08:10; Start 01/16/17 at 08:00; Stop 01/16/17 at 08:01 ; Status DC Gentamicin Sulfate (Gentamicin Inj) 240 mg STK-MED ONCE .ROUTE Last administered on 01/16/17 10:55; Start 01/16/17 at 09:44; Stop 01/16/17 at 09:45 ; Status DC Acetaminophen (Ofirmev Inj) 1,000 mg STK-MED ONCE IV ; Start 01/16/17 at 09:46; Stop 01/16/17 at 09:47; Status DC Famotidine (Pepcid Inj) 20 mg STK-MED ONCE .ROUTE ; Start 01/16/17 at 09:46; Stop 01/16/17 at 09:47; Status DC Midazolam HCl (Versed Inj) 5 mg STK-MED ONCE .ROUTE ; Start 01/16/17 at 09:46; Stop 01/16/17 at 09:47; Status DC Fentanyl Citrate (fentaNYL INJ) 250 mcg STK-MED ONCE .ROUTE ; Start 01/16/17 at 09:47; Stop 01/16/17 at 09:48; Status DC Dexamethasone Sodium Phosphate (Decadron Inj) 4 mg STK-MED ONCE .ROUTE ; Start 01/16/17 at 09:47; Stop 01/16/17 at 09:48; Status DC Fentanyl Citrate (fentaNYL INJ) 500 mcg STK-MED ONCE .ROUTE ; Start 01/16/17 at 12:44; Stop 01/16/17 at 12:45; Status DC Meperidine HCl (*DEMEROL INJ PERIprocedural ONLY) 25 mg STK-MED ONCE .ROUTE Last administered on 01/16/17 12:49; Start 01/16/17 at 12:49; Stop 01/16/17 at 12:50; Status DC Ondansetron HCl (*ZOFRAN INJ PERIprocedural ONLY) 4 mg STK-MED ONCE .ROUTE Last administered on 01/16/17 12:49; Start 01/16/17 at 12:49; Stop 01/16/17 at 12:50; Status DC Morphine Sulfate (*morphine INJ PERIprocedure ONLY) 8 mg STK-MED ONCE .ROUTE Last administered on 01/16/17 13:12; Start 01/16/17 at 13:12; Stop 01/16/17 at 13:13; Status DC Morphine Sulfate (*morphine INJ PERIprocedure ONLY) 8 mg STK-MED ONCE .ROUTE Last administered on 01/16/17t 13:28; Start 01/16/17 at 13:28; Stop 01/16/17 at 13:29; Status DC Miscellaneous Information ALL NURSING DEPARTME... UNSCH PRN .XX SEE LABEL COMMENTS; Start 01/16/17 at 13:45; Stop 01/17/17 at 13:44 A/P Assessment and Plan 66 y/o with severe post traumatic right knee OA -s/p total right knee arthroplasty on 01/16POD #1 -being managed by Ortho. HTN/depression. hypothyrodism/gerd/chronic pain/ chronic inflammation demyelinating polyneuropathy -home medication already resumed DVT prophylaxis per Ortho. Discharge Planning patient is stable and medically clear for discharge. Karol Kingston MD Jan 17, 2017 10:07
[2017-01-17] MEDS: SERTRALINE HCL 100 MG TAB PO SCH ×2 (10:15→10:16)
[2017-01-17] MEDS: POLYETHYLENE GLYCOL 17 GM PKG PO SCH ×2 (10:15→10:16)
[2017-01-17] MEDS: LISINOPRIL 10 MG TAB PO SCH ×2 (10:15→10:17)
[2017-01-17] MEDS: GABAPENTIN 400 MG CAP PO SCH ×3 (10:16→19:42)
[2017-01-17] MEDS: buPROPion HCL 75 MG TAB PO SCH ×3 (10:16→19:42)
[2017-01-17] MEDS: TERAZOSIN HCL 5 MG CAP PO SCH ×3 (10:16→19:42)
[2017-01-17] MEDS: FAMOTIDINE 20 MG TAB PO SCH ×2 (10:17→21:08)
[2017-01-17] MEDS: SODIUM CHLORIDE 0.9% FLUSH 5 ML FLUSH IVF SCH ×2 (10:18→21:00)
--- NOTE | 2017-01-17 13:49 | HHI.PR ---
Objective Objective Results - Vital Signs Date Time Temp Pulse Resp B/P Pulse Ox O2 Delivery O2 Flow Rate FiO2 01/17/17 12:00 97.2 72 19 128/70 96 01/17/17 08:04 95 21 01/17/17 08:00 96.7 63 18 126/65 96 01/17/17 04:00 97.1 66 15 128/68 100 01/17/17 00:00 97.0 68 19 126/60 96 01/16/17 19:57 99 Nasal Cannula 3.00 01/16/17 19:00 96.7 66 16 120/66 98 01/16/17 14:40 97.3 88 17 130/68 99 01/16/17 14:00 92 14 130/73 97 Nasal Cannula 3 I/O 01/16/17 01/16/17 01/16/17 01/17/17 01/17/17 01/17/17 07:00 15:00 23:00 07:00 15:00 23:00 Intake Total 1500 ml 480 ml 400 ml Output Total 800 ml 600 ml 600 ml Balance 700 ml -120 ml -200 ml Intake Oral 480 ml 400 ml Other 1500 ml Output Urine Total 700 ml 600 ml 600 ml Estimated Blood Loss 100 ml # Bowel Movements 0 Result Diagram: 01/17/1746 01/17/17 0546 Physical Exam Physical Exam PHYSICAL EXAMINATION GENERAL: This is a well-developed, well-nourished male who appears to be in no acute distress. He is alert and awake, []. HEAD: Normocephalic without any lesion or mass noted. Facial features appear symmetric. OROPHARYNGEAL: Oropharynx without erythema or edema. NECK: Supple. No nuchal rigidity or lymphadenopathy. Trachea midline without deviation. CARDIAC: Regular rhythm, regular rate, S1 and S2 are heard. Murmur []; no gallops or rubs. LUNGS: Clear to auscultation bilaterally. [] wheeze, [] rhonchi or [] rale. No use of accessory muscles on inspiration or expiration. ABDOMEN: Soft, nontender, no organomegaly or masses. Bowel sounds are heard in all four quadrants. No rebound. No guarding. EXTREMITIES: [] edema. Pulses equal bilateral. [] cyanosis. NEUROLOGICAL: Patient mood and affect appropriate. No focal deficit SKIN:Warm and moist Carmen Valdovinos Jan 17, 2017 13:49
[2017-01-17] MEDS: ENOXAPARIN SODIUM 40 MG/0.4 ML SYRINGE SQ SCH (13:52)
--- NOTE | 2017-01-17 19:18 | MP ---
cc: KAILEE CONNORS DATE OF SURGERY: 01/16/2017 PREOPERATIVE DIAGNOSIS: Right knee osteoarthritis. POSTOPERATIVE DIAGNOSIS: Right knee osteoarthritis. OPERATION: Right total knee arthroplasty. SURGEON Dr. Kailee Connors AIRSET CASTER: SCOTT Gurrola ANESTHESIA General with femoral nerve block. ESTIMATED BLOOD LOSS: Less than 50 cc. COMPLICATIONS: None. TOURNIQUET TIME: 58 minutes, at 250 mmHg. IMPLANTS: DePuy Attune size 8, posterior stabilized femoral component size 7, rotating platform tibia baseplate, size 6 millimeter, polyethylene tibial insert size 38 millimeter patella. JUSTIFICATION: The patient is a 66-year-old male with history of severe end-stage osteoarthritis involving the right knee. He has severe disabling pain, standing, walking, ambulating, weightbearing activity, even pain at rest. He has failed greater than three months of nonoperative conservative treatment, to include medication, therapy, injections, ambulatory assistive aids, activity modification, weight loss attempt, x-ray of the right knee revealed severe end-stage osteoarthritis, [id number] joint space narrowing, subchondral sclerosis, subchondral cyst, osteophyte formation, varus deformity. The patient was counseled as to the risks, benefits and alternatives to total knee arthroplasty. The risks were discussed which include but not limited to anesthesia, bleeding, infection, damage to nerves and blood vessels, pain, stiffness, failure of the components, blood clot, pulmonary embolism, and even . The patient's pain was severe. He favored the benefits over the risks and did wish to proceed with surgery. PROCEDURE IN DETAIL A written consent was obtained. The patient was identified by name, taken to the operating room and placed supine on the operating table. General anesthesia was administered as well as 2 grams of IV Ancef and 1 gram of IV vancomycin. A well-padded tourniquet was placed on the right thigh. The right lower extremity was prepped and draped using isopropyl alcohol, Hibiclens solution and ChloraPrep solution. After time out was performed, the Esmarch bandage was used to exsanguinate the right lower extremity. The right lower extremity then had the tourniquet inflated to 250 mmHg. A longitudinal incision was made over the anterior aspect of the right knee. A medial parapatellar arthrotomy was performed. The patella was everted. 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 Patella resection guide was used to resect 9 millimeters of patella. A size 38 millimeter guide was placed. Three drill holes were placed and the 38 millimeter trial fit well. Attention was turned to the femur where an intramedullary guide wire was placed. The distal femoral guide was set to remove 10 mm off the distal femur, 5 degrees off the anatomic valgus axis alignment. An oscillating saw was used to perform the distal femoral cut. Attention was turned to the tibia where an extramedullary tibial guide was used to resect 5 mm off the lowest portion of the medial tibial plateau. The tibia guide was pinned in place and tibia cut was performed. The 5 mm spacer block showed full extension. Attention was turned back to the femur where the AP sizing block measured a size 8. The anterior reference 3 degree external rotation guide was used to pin a size [address] The anterior, posterior and chamfer cuts were performed. A size 8 PCL box guide was pinned in place and the PCL was boxed in with an oscillating saw. The medial and lateral meniscus remnants were removed as well as bone and soft tissue debris from the posterior portion of the knee. The size 7 tibia baseplate was pinned in place. The tibia was drilled and punched. Trial components were evaluated and final components cemented in place. With the 6 millimeter tibial insert, the leg could achieve full extension, 0 degrees of flexion to 140. No evidence of tibial lift-off, varus-valgus, balance appeared appropriate and symmetric. The patella was noted to track centrally. The knee was thoroughly irrigated with sterile saline pulse lavage, antibiotic impregnated solution. The arthrotomy incision was closed with #1 Vicryl suture. The subcutaneous layer with 2-0 Vicryl suture and skin was closed Dermabond. Sterile dressing applied. The patient tolerated the procedure well. No intraoperative complication noted. Otto Hall, physician anesthesia assistant certified, was present during the entire procedure to include patient positioning and the procedure itself. The medical necessity of a physician anesthesia assistant was indicated in this case due to the complexity of the procedure itself. He assisted with appropriate manipulation of the leg and also retraction of muscle, tendon, bone and neurovascular structures. He assisted with preparation of bone and also implantation of the prosthetic replacement. MD DEMI Alas/RUBA /12:07 PM /7:01 PM
[2017-01-17] MEDS: MULTIVITAMINS/MINERALS THERAPEUTIC TAB PO SCH (21:08)
[2017-01-18] MEDS: ACETAMINOPHEN/HYDROcodone 325 MG/7.5 MG TAB PO PRN ×4 (03:52→20:11)
[2017-01-18] MEDS: LEVOTHYROXINE SODIUM 100 MCG TAB PO SCH (05:43)
[2017-01-18 07:24] LABS: MEAN CELL VOLUME 93.2 FL (80.0-100.0); MEAN CORPUSCULAR HGB CONC 34.3 % (32.0-36.0); PLATELET COUNT 117 TH/MM3 (150-450); RED BLOOD COUNT 3.22 MIL/MM3 (4.50-5.90); RED CELL DISTRIBUTION WIDTH 13.3 % (11.6-17.2); REVIEW FLAG FINAL; WHITE BLOOD COUNT 6.5 TH/MM3 (4.0-11.0)
[2017-01-18 07:33] LABS: POTASSIUM 3.8 MEQ/L (3.5-5.1)
--- NOTE | 2017-01-18 07:59 | PD.ORT.PN ---
Subjective Post Op Day #: 2 Subjective Remarks pain in R knee tolerable, but meds don't last 4 hours. denies cp and sob. Objective Vitals Vital Signs Date Time Temp Pulse Resp B/P Pulse Ox O2 Delivery O2 Flow Rate FiO2 01/17/17 23:55 98.4 75 17 140/67 95 01/17/17 19:50 98.0 71 18 156/73 98 01/17/17 17:59 98 21 01/17/17 16:13 98.0 68 15 127/70 98 01/17/17 12:00 97.2 72 19 128/70 96 01/17/17 08:04 95 21 01/17/17 08:00 96.7 63 18 126/65 96 I/O 01/17/17 01/17/17 01/17/17 01/18/17 01/18/17 01/18/17 07:00 15:00 23:00 07:00 15:00 23:00 Intake Total 400 ml 600 ml 480 ml 240 ml Output Total 600 ml 450 ml 1400 ml Balance -200 ml 150 ml 480 ml -1160 ml Intake Oral 400 ml 600 ml 480 ml 240 ml Output Urine Total 600 ml 450 ml 1400 ml # Voids 2 # Bowel Movements 1 1 0 Result Diagram: 01/18/17 0515 01/18/17 0557 Objective Remarks in bed, nad incision no erythema, no drainage neg homans nvi Assessment & Plan Ortho Post Op Day #: 2 Problem List: Assessment and Plan s/p R TKA wbat daily dressing changes lovenox d/c planning to snf - cleared today if bed available and authorized by insurance [id number] signed rx in chart f/up dr. arroyo 2 weeks Bao Hall Jan 18, 2017 07:58
[2017-01-18 08:00] VITALS: BP 158/80; PULSE 79; RESP 18; TEMP 98.7; O2SAT 95
[2017-01-18] MEDS: LISINOPRIL 10 MG TAB PO SCH (08:19)
[2017-01-18] MEDS: FAMOTIDINE 20 MG TAB PO SCH ×2 (08:19→20:11)
[2017-01-18] MEDS: MULTIVITAMINS/MINERALS THERAPEUTIC TAB PO SCH ×2 (08:19→20:11)
[2017-01-18] MEDS: POLYETHYLENE GLYCOL 17 GM PKG PO SCH (08:20)
[2017-01-18] MEDS: SODIUM CHLORIDE 0.9% FLUSH 5 ML FLUSH IVF SCH ×2 (08:23→20:11)
[2017-01-18] MEDS: SERTRALINE HCL 100 MG TAB PO SCH (08:24)
[2017-01-18] MEDS: GABAPENTIN 400 MG CAP PO SCH ×3 (08:24→17:22)
[2017-01-18] MEDS: buPROPion HCL 75 MG TAB PO SCH ×3 (08:24→17:22)
[2017-01-18] MEDS: SODIUM CHLOR 0.9% 1000 ML INJ 1,000 ML IV SCH ×2 (08:24→19:02)
[2017-01-18] MEDS: TERAZOSIN HCL 5 MG CAP PO SCH ×3 (08:24→17:22)
[2017-01-18 08:51] VITALS: O2SAT 98
[2017-01-18] MEDS: POVIDONE IODINE 5% (ANTISEPSIS KIT) 4 APPLICATIONS EACH NARE PRN (09:15)
[2017-01-18] MEDS: POVIDONE IODINE 7.5% SCRUB 118 ML BOTTLE TOPICAL SCH (09:15)
[2017-01-18] MEDS: CHLORHEXIDINE GLUCONATE 4% SOLN 120 ML BTL TOPICAL SCH (09:15)
[2017-01-18 12:00] VITALS: BP 110/60; PULSE 83; RESP 18; TEMP 97.6; O2SAT 96
[2017-01-18] MEDS: ENOXAPARIN SODIUM 40 MG/0.4 ML SYRINGE SQ SCH (12:14)
[2017-01-18 15:50] VITALS: BP 130/69; PULSE 80; RESP 18; TEMP 98.1; O2SAT 97
[2017-01-18 20:20] VITALS: BP 126/63; PULSE 75; RESP 17; TEMP 98.8; O2SAT 97
[2017-01-19] MEDS: ACETAMINOPHEN/HYDROcodone 325 MG/7.5 MG TAB PO PRN ×6 (00:02→16:55)
[2017-01-19 00:20] VITALS: BP 129/72; PULSE 77; RESP 17; TEMP 98.1; O2SAT 96
[2017-01-19] MEDS: SODIUM CHLOR 0.9% 1000 ML INJ 1,000 ML IV SCH ×2 (05:02→15:02)
[2017-01-19 05:41] LABS: HEMATOCRIT 29.5 % (39.0-51.0); MEAN CELL VOLUME 93.5 FL (80.0-100.0); MEAN CORPUSCULAR HEMOGLOBIN 31.8 PG (27.0-34.0); MEAN CORPUSCULAR HGB CONC 34.1 % (32.0-36.0); PLATELET COUNT 136 TH/MM3 (150-450); RED BLOOD COUNT 3.16 MIL/MM3 (4.50-5.90); RED CELL DISTRIBUTION WIDTH 13.4 % (11.6-17.2); REVIEW FLAG FINAL; WHITE BLOOD COUNT 6.5 TH/MM3 (4.0-11.0)
[2017-01-19] MEDS: LEVOTHYROXINE SODIUM 100 MCG TAB PO SCH (06:08)
[2017-01-19 06:09] LABS: BICARBONATE 29.9 MEQ/L (21.0-32.0); POTASSIUM 4.4 MEQ/L (3.5-5.1)
--- NOTE | 2017-01-19 07:45 | PD.ORT.PN ---
Subjective Post Op Day #: 3 Subjective Remarks feeling better. denies cp and sob. Objective Vitals Vital Signs Date Time Temp Pulse Resp B/P Pulse Ox O2 Delivery O2 Flow Rate FiO2 01/19/17 00:20 98.1 77 17 129/72 96 01/18/17 20:20 98.8 75 17 126/63 97 01/18/17 15:50 98.1 80 18 130/69 97 01/18/17 12:00 97.6 83 18 110/60 96 01/18/17 08:51 98 21 01/18/17 08:00 98.7 79 18 158/80 95 I/O 01/18/17 01/18/17 01/18/17 01/19/17 01/19/17 01/19/17 07:00 15:00 23:00 07:00 15:00 23:00 Intake Total 240 ml 960 ml 240 ml 120 ml Output Total 1400 ml 800 ml 350 ml 800 ml Balance -1160 ml 160 ml -110 ml -680 ml Intake Oral 240 ml 960 ml 240 ml 120 ml Output Urine Total 1400 ml 800 ml 350 ml 800 ml # Bowel Movements 0 0 0 0 Result Diagram: 01/19/1752101/19/17521 Objective Remarks in bed, nad dressing c/d/i neg homans nvi Assessment & Plan Ortho Post Op Day #: 3 Problem List: Assessment and Plan s/p R TKA wbat daily dressing changes lovenox d/c planning to snf - cleared today if bed available and authorized by insurance [id number] signed rx in chart f/up dr. arroyo 2 weeks Bao Hall Jan 19, 2017 07:45
[2017-01-19 08:00] VITALS: BP 153/77; PULSE 69; RESP 18; TEMP 98; O2SAT 96
[2017-01-19] MEDS: GABAPENTIN 400 MG CAP PO SCH ×2 (08:14→12:03)
[2017-01-19] MEDS: FAMOTIDINE 20 MG TAB PO SCH (08:14)
[2017-01-19] MEDS: SERTRALINE HCL 100 MG TAB PO SCH (08:14)
[2017-01-19] MEDS: TERAZOSIN HCL 5 MG CAP PO SCH ×2 (08:14→12:03)
[2017-01-19] MEDS: MULTIVITAMINS/MINERALS THERAPEUTIC TAB PO SCH (08:15)
[2017-01-19] MEDS: LISINOPRIL 10 MG TAB PO SCH (08:15)
[2017-01-19] MEDS: SODIUM CHLORIDE 0.9% FLUSH 5 ML FLUSH IVF SCH (08:15)
[2017-01-19] MEDS: buPROPion HCL 75 MG TAB PO SCH ×2 (08:15→12:03)
[2017-01-19] MEDS: POLYETHYLENE GLYCOL 17 GM PKG PO SCH (08:24)
[2017-01-19 12:00] VITALS: BP 126/65; PULSE 70; RESP 18; TEMP 98; O2SAT 96
[2017-01-19] MEDS: ENOXAPARIN SODIUM 40 MG/0.4 ML SYRINGE SQ SCH (12:02)
--- NOTE | 2017-01-24 08:44 | MD ---
cc: KAILEE CHRISTIANSON ADMISSION DATE: 01/16/2017 DISCHARGE DATE: 01/19/2017 ADMISSION DIAGNOSIS Severe distinct degenerative osteoarthritis right knee DISCHARGE DIAGNOSIS Severe distinct degenerative osteoarthritis right knee HISTORY OF PRESENT ILLNESS Mr. Ferguson is a 66-year-old male who presented to the [facility] for evaluation by Dr. Kailee Christianson regarding his severe and progressive right knee pain. The patient states the pain has been bothering him for several years, but is currently a severe constant aching sensation. He notes the pain is aggravated with weightbearing activities and even using a walker for ambulation due to the pain. He notes at this point time, he has no alleviating factors, although in the past he has tried medications, bracing, assistive devices, physical therapy, home exercise program, as well as corticosteroid injections without relief of symptoms. The patient does have x-ray evidence of severe degenerative osteoarthritis of the right knee. While in the office, the patient was counseled as to the diagnosis and treatment options. The risks, benefits, and indications were all discussed in great detail. The patient did elect to proceed with surgical intervention to include a right total knee arthroplasty. Date of surgery 01/16/2017 right total knee arthroplasty. Postop after surgery, the patient admitted to [facility] where he stated appropriate medical management, pain control, DVT prophylaxis and physical therapy. Discharge, once being discharged from the hospital, the patient is cleared to go to a correction facility. He is in stable condition. The patient may weight-bear as tolerated. He is to receive daily dressing changes and has been instructed on appropriate wound care management. The patient has been provided prescriptions for pain control, as well as DVT prophylaxis medication. He has also been provided a follow-up appointment to see Dr. Kailee Christianson in the office in approximately two weeks from his date of surgery. The patient has asked appropriate questions which have been answered. The patient is cleared for discharge. Dictated by SCOTT Giraldo MD DEMI Alas/ELIO /7:49 AM /8:43 AM
== END 2017-01-19 17:45 | DRG 470 ==
LOC: HSDI 01-16 06:52 → N06B 01-16 14:18 → N06A 01-17 13:19
PROVIDERS: ADMIT Orthopaedic Surgery Sports Medicine; ATTEND Orthopaedic Surgery Sports Medicine
PROC: 0SRC0J9 Replacement of Right Knee Joint with Synthetic Substitute, Cemented, Open Approach (ICD-10-PCS; principal; 2017-01-16 10:02)
DX: M17.11 Unilateral primary osteoarthritis, right knee (principal); G61.81 Chronic inflammatory demyelinating polyneuritis; I10 Essential (primary) hypertension; E03.9 Hypothyroidism, unspecified; M43.26 Fusion of spine, lumbar region; Z87.891 Personal history of nicotine dependence; Z79.82 Long term (current) use of aspirin
CPT/HCPCS: 73560; 80048; 85027; 86850; 86900; 86901; 93005; 94150; C1776; J0131; J0171; J0690; J0735; J1100; J1170; J1580; J1650; J1885; J2175; J2250; J2270; J2405; J2710; J2795; J3010; J3370; J7030; J7050; J7120; L1830

== ENCOUNTER 2018-06-25 06:14 | Inpatient (IN) ==
[2018-06-25] MEDS ORDERED: Metoprolol Tartrate 25 MG Tablet PO ONE (06:38)
[2018-06-25] MEDS ORDERED: Chlorhexidine Gluconate 2% 1 Pack (2 Cloths) TOPICAL ONE (06:38)
[2018-06-25] MEDS ORDERED: Dexamethasone Inj 20 MG/5 ML Vial IV.PUSH ONE (06:41)
[2018-06-25] MEDS ORDERED: Post-op Orders (for Pharmacy) OTHER STA (06:43)
[2018-06-25] MEDS ORDERED: Sodium Chlor 0.9% Inj 100 ML, Tranexamic Acid Inj 3,000 MG P-ARTICULR SCH ×2 (06:45)
[2018-06-25] MEDS ORDERED: Chlorhexidine 4% Topical 120 APPLIC/120 ML Bottle TOPICAL SCH (06:45)
[2018-06-25] MEDS ORDERED: Sodium Chlor 0.9% Inj 500 ML IV.SIG SCH (07:00)
[2018-06-25] MEDS ORDERED: ceFAZolin 2 GM Premix Inj 2 GM/50 ML PIGGYBACK IV.SIG SCH (07:00)
[2018-06-25] MEDS ORDERED: Vancomycin Inj 1,000 MG in Sodium Chlor 0.9% Inj 250 ML IV.SIG SCH (07:00)
[2018-06-25] MEDS ORDERED: Tranexamic Acid Inj 1,430 MG in Sodium Chlor 0.9% Inj 100 ML IV.SIG SCH (07:00)
[2018-06-25] MEDS ORDERED: Bupivacaine Liposomal PF 1.3% Inj 20 ML Vial ONE (07:24)
[2018-06-25] MEDS ORDERED: Glycopyrrolate Inj 1 MG/5 ML Syringe IV.PUSH ONE (08:30)
[2018-06-25] MEDS ORDERED: Lidocaine PF 1% Inj 5 ML Syringe OTHER ONE (08:30)
[2018-06-25] MEDS ORDERED: Phenylephrine/NS 1000 MCG/10ML Syringe IV.PUSH ONE (08:30)
[2018-06-25] MEDS ORDERED: Sodium Chlor 0.9% Inj 73.07 ML, Ropivacaine 0.5% PF Inj 24.63 ML, Ketorolac Inj 30 MG, ... P-ARTICULR SCH ×5 (09:00)
[2018-06-25] MEDS ORDERED: fentaNYL Citrate Inj 100 MCG/2 ML Ampul ONE (10:52)
[2018-06-25] MEDS ORDERED: Morphine Inj 4 MG/ML Vial ONE (10:52)
[2018-06-25] MEDS ORDERED: *morphine SULFATE 4 MG/ML PERIprocedure ONLY ONE (10:53)
[2018-06-25] MEDS ORDERED: *morphine SULFATE 10 MG/ML PERIprocedure ONLY ONE (11:05)
--- NOTE | 2018-06-25 11:42 | XR ---
EXAM DATE: 06/25/2018 6:42 AM EDT AGE/SEX: 67 years / Male INDICATIONS: Post op left total knee. CLINICAL DATA: This is the patient's initial encounter. Patient reports that signs and symptoms have been present for 1 day and indicates a pain score of 9/10. MEDICAL/SURGICAL HISTORY: None. None. COMPARISON: [facility] – [place], KNEE RIGHT LTD (1 OR 2 VWS), 01/16/2017. . FINDINGS: AP and lateral views of the knee following arthroplasty reveals a prosthesis in anatomic alignment. F racture is not appreciated. Subcutaneous air is evident. CONCLUSION: Status post total knee arthroplasty in anatomic alignment.. Adrian Yepez MD FACR Electronically signed by: Adrian Yepez MD 06/25/2018 11:40 AM EDT
--- NOTE | 2018-06-25 12:09 | MP ---
cc: Bao Christianson MD DATE OF OPERATION: 06/25/2018 PREOPERATIVE DIAGNOSIS: Left knee osteoarthritis. POSTOPERATIVE DIAGNOSIS: Left knee osteoarthritis. PROCEDURE: Left total knee arthroplasty. SURGEON: Bao Christianson MD FUR TINTER: SCOTT Gurrola. ANESTHESIA: General with femoral nerve adductor canal block. ESTIMATED BLOOD LOSS: Less than 50 mL. TOURNIQUET TIME: 37 minutes at 250 mmHg. COMPLICATIONS: None. IMPLANTS USED: DePuy Attune size 7 posterior stabilized femoral component, size 7 rotating platform tibial baseplate, size 6 mm polyethylene tibia insert, size 38 patella. JUSTIFICATIONS: The patient is a 67-year-old male with a history of severe osteoarthritis involving the left knee joint. He has severe disabling pain with standing, walking, ambulation, weightbearing activities and severe pain at rest, it does interfere with activities of daily living. He has failed greater than 3 months of nonoperative conservative treatment to include medication therapy, injections, ambulatory assistive aides, home exercise program, activity modification and weight loss. X-rays left knee reveal severe osteoarthritis with joint space narrowing, subchondral sclerosis, subchondral cyst, osteophyte formation with subluxation. The patient was counseled on risks, benefits and alternatives to a total knee arthroplasty. The risks were discussed, which include, but are not limited to anesthesia, bleeding, infection, damage to nerves and blood vessels, pain, stiffness, failure of hardware, blood clots, pulmonary embolism and even . The patient's pain is severe. He favored the benefits over the risks. He did wish to proceed with surgery. PROCEDURE IN DETAIL: Written consent was obtained. The patient was identified by name, taken to the operating room and placed supine on the operating table. General anesthesia was administered as well as 2 grams of IV Ancef and 1 gram of IV vancomycin. A well-padded tourniquet was placed on the left thigh. The left lower extremity prepped and draped using isopropyl alcohol, Hibiclens solution and ChloraPrep solution. After a timeout was performed, an Esmarch bandage was used to exsanguinate the left lower extremity with tourniquet inflated to 250 mmHg. A longitudinal incision was made to the anterior aspect of the left knee. Medial parapatellar arthrotomy was performed. The patella was everted. A patellar resection guide was used to resect 9 mm of the patella; a size 38 mm guide was placed. Three drill holes were placed and a 38 mm trial fit well. Attention turned to the femur. Intramedullary guide was placed. The distal femoral guide was set to remove 11 mm of distal femur, 5 degrees off the anatomic valgus axis alignment. An oscillating saw was used to perform the distal femoral cut. Attention was turned to the tibia. An extramedullary tibial guide was set to remove 6 mm of the lowest portion of the medial tibial plateau. The tibia guide was pinned in place and tibia cut was performed. A 5 mm spacer block showed full extension. Attention was turned back to the femur. AP sizing block measured to a size 7. The anterior reference 3-degree external rotation guide was used to pin a size 7 block was placed. The anterior, posterior chamfer cuts were performed. A size 7 PCL box was pinned in place and the PCL was approximated with an oscillating saw. The medial and lateral meniscus remnants were removed as well as bone and soft tissue debris from the posterior portion of the knee. A size 7 tibia baseplate was pinned in place and tibia was drilled and punched. Trial components were evaluated and the final components were cemented in place. With the current components the leg achieved full extension to 0-degrees and flexion to 140. No evidence of tibial liftoff. Varus valgus balance appeared appropriate and symmetric. With the tourniquet deflated, Bovie cautery was used for hemostasis. The surgical wound was thoroughly irrigated with sterile saline, pulse lavage, pulse lavage, antibiotic impregnated solution. The arthrotomy incision was closed with #1-Vicryl suture, subcutaneous layer with 2-0 Vicryl suture and the skin was closed with Dermabond. Sterile dressing applied. The patient tolerated the procedure well. No intraoperative complications noted. Otto Hall, Physician Chief Relay Tester-Certified was present for the entire procedure to include patient positioning and the procedure itself. The medical necessity of the physician logistics assistant was indicated in this case due to the complexity of the procedure. He assisted with appropriate manipulation of the leg and also retraction muscles, tendon, bone and neurovascular structures. He assisted in preparation of bone and also implantation of the prosthetic replacement. MD DEMI Alas/shannan , 10:22 AM , 10:32 AM
[2018-06-25] MEDS: buPROPion 75 MG Tablet PO SCH ×2 (13:00→17:35)
[2018-06-25] MEDS: ceFAZolin Inj 2,000 MG in Sodium Chlor 0.9% Inj 100 ML IV.SIG SCH ×2 (14:00→20:49)
--- NOTE | 2018-06-25 16:16 | ECG ---
Date Performed: 06/25/2018 Time Performed: 06:47:29 PTAGE: 67 years EKG: Sinus rhythm NORMAL ECG PREVIOUS TRACING : 01/16/2017 07.34 Since the previous tracing, no significant change noted DOCTOR: Hector Kapoor Interpretating Date/Time 06/25/2018 16:14:15
--- NOTE | 2018-06-25 17:43 | P.CONIM ---
History of Present Illness Service: Hospitalist Consult date: 06/25/18 Requesting Physician: Bao Christianson Reason for Consult: Medical management Primary Care Provider: Tay Mcgrath History of Present Illness: 67-year-old male with history of hypertension, BPH, hypothyroidism, depression, osteoarthritis, and CIDP admitted for elective left total knee arthroplasty. Hospitalist service has been consulted for medical management. Patient seen postoperatively up on the floor. He denies any acute complaints and states his pain is well controlled. His only concern is restarting his terazosin because he states he has difficulty urinating without it. He denies any chest pain, shortness of breath, abdominal pain, nausea, vomiting, rash, dysuria, or edema. 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 He is planning on going to rehab on discharge. Review of Systems All other systems reviewed negative except as stated in HPI PMFSH - History History Provided By: Patient - Medical History Medical History: Medical History (Last Reviewed 06/25/18 @ 17:41 by Sweta Foley MD) H/O endoscopy Arthritis BPH (benign prostatic hyperplasia) Chronic inflammatory demyelinating polyradiculoneuropathy Depression GERD (gastroesophageal reflux disease) [place] (hard of hearing) Hypertension Hypothyroid Metal bone fixation hardware in place Presence of orthopedic joint implant Visual impairment - Surgical History Surgical History: Surgical History (Last Reviewed 06/25/18 @ 17:41 by Sweta Foley MD) H/O colonoscopy History of arthroscopy of left knee History of total right hip replacement History of total right knee replacement (TKR) Hx of laminectomy - Family History Family History: Family History (Last Updated 06/25/18 @ 17:41 by Sweta Foley MD) Mother Depression Father COPD (chronic obstructive pulmonary disease) - Tobacco History Second Hand Smoke Exposure: No Tobacco Use In Past 30 Days: No Smoking Status: Former smoker - Alcohol History How Often Do You Have a Drink Containing Alcohol: 4 or more times a week - Substance Use History Substance History: No History of Abuse - Travel History Recent Travel in the [place] Within the Last 8 Weeks: No Recent Travel Out of the Country Within the Last 8 Weeks: No - Immunization History Tetanus Immunization: Unsure Hx Influenza Vaccine This Season: No Medications and Allergies Active Medications: Active Medications Hydrocodone Bitart/Acetaminophen ([place] 7.5/325) 1 tab PO Q4H PRN PRN Reason: PAIN LESS THAN 5 ON SCALE Hydrocodone Bitart/Acetaminophen ([place] 7.5/325) 2 tab PO Q6H PRN PRN Reason: PAIN SCALE 5 TO 10 Aspirin (Aspirin Chew) 81 mg PO BID [facility] Bupropion HCl (Wellbutrin) 150 mg PO TID [facility] Last Admin: 06/25/18 17:35 Dose: 150 mg Chlorhexidine Gluconate (Hibiclens 4% Topical) 1 applicatio TOPICAL ONCE [facility] Stop: 06/29/18 06:44 Last Admin: 06/25/18 07:00 Dose: 1 applicatio Famotidine (Pepcid) 20 mg PO BID [facility] Hydromorphone HCl (Dilaudid Pf Inj) 1 mg IV.PUSH Q3H PRN PRN Reason: BREAKTHROUGH PAIN Lactated Ringer's (Lr 1000 Ml Inj) 1,000 mls @ 30 mls/hr IV.SIG .Q24H [facility] Stop: 06/26/18 06:44 Last Infusion: 06/25/18 10:22 Dose: Infused Sodium Chloride (Ns Inj) 500 mls @ 30 mls/hr IV.SIG .Q10H [facility] Cefazolin Sodium 2,000 mg/ (Sodium Chloride) 120 mls @ 240 mls/hr IV.SIG Q6H [facility] Stop: 06/26/18 02:29 Last Infusion: 06/25/18 14:30 Dose: 0 mls/hr Lactated Ringer's (Lr 1000 Ml Inj) 1,000 mls @ 80 mls/hr IV.CONT .[id number] [facility] Last Admin: 06/25/18 11:05 Dose: 80 mls/hr Vancomycin HCl 1,000 mg/ (Sodium Chloride) 250 mls @ 250 mls/hr IV.SIG HACK DRIVER [facility] Stop: 06/28/18 06:43 Last Infusion: 06/25/18 08:55 Dose: Infused Cefazolin Sodium/Dextrose (Ancef 2 Gm Premix Inj) 2 gm in 50 mls @ 100 mls/hr IV.SIG HACK DRIVER [facility] Stop: 06/29/18 06:59 Last Infusion: 06/25/18 08:40 Dose: Infused Lactulose (Lactulose Liq) 30 ml PO DAILY PRN PRN Reason: SEVERE CONSITIPATION Levothyroxine Sodium (Synthroid) 125 mcg PO DAILY@0600 [facility] Lisinopril (Prinivil) 10 mg PO DAILY [facility] Melatonin (Melatonin) 5 mg PO HS PRN PRN Reason: Insomnia Multivitamins/Minerals (Theragran-M) 1 tab PO BID [facility] Stop: 08/24/18 08:59 Ondansetron HCl (Zofran Inj) 4 mg IV.PUSH Q6H PRN PRN Reason: NAUSEA OR VOMITING Povidone Iodine (Betadine 7.5% Scrub) 1 applicatio TOPICAL ONCE [facility] Stop: 06/29/18 06:59 Last Admin: 06/25/18 07:58 Dose: Not Given Pregabalin (Lyrica) 150 mg PO BID [facility] Senna/Docusate Sodium (Tresa-Colace) 1 tab PO BID [facility] Sennosides (Senokot) 17.2 mg PO BID PRN PRN Reason: Moderate Constipation Sertraline HCl (Zoloft) 100 mg PO DAILY [facility] Sodium Chloride (Ns Flush) 2 ml IV.FLUSH BID [facility] Sodium Chloride (Ns Flush) 2 ml IV.FLUSH PRN PRN PRN Reason: FLUSH AFTER USING IV ACCESS Terazosin HCl (Hytrin) 5 mg PO TID [facility] Last Admin: 06/25/18 17:03 Dose: 5 mg Allergies Allergy/AdvReac Type Severity Reaction Status Date / Time oxybutynin Allergy Severe Somnolence Verified 06/25/18 06:44 zolpidem Allergy Severe Hallucinati Verified 06/25/18 07:01 ons melon [Cantaloupe] Allergy Anaphylaxis Verified 06/25/18 07:01 diphenhydramine AdvReac Urinary Verified 06/25/18 07:01 [From Benadryl] Freq (Inc/Dec) melons Allergy Severe Anaphylaxis Uncoded 06/12/18 12:55 Home Medications Medication Instructions Recorded Confirmed Type aspirin [Aspirin Low Dose] 81 mg PO DAILY 06/12/18 06/12/18 History bupropion HCl 150 mg PO TID 06/12/18 06/25/18 History cyanocobalamin (vitamin B-12) 1,000 mcg PO DAILY 06/12/18 06/25/18 History [Vitamin B-12] diclofenac sodium 75 mg PO BID 06/12/18 06/12/18 History fish,bora,flax oils-om3,6,9no1 1 cap PO BID 06/12/18 06/25/18 History [[place] 3-6-9] tcquhvdm-mtqak-mae3-C-essence-bor 1 tab PO BID 06/12/18 06/25/18 History [Glglkkicrsp-Twwhn-WIW Complex] immun glob G(IgG)-pro-IgA 0-50 300 mg/kg IV Q4W 06/12/18 06/25/18 History [Privigen] levothyroxine 125 mcg PO DAILY 06/12/18 06/25/18 History lisinopril 10 mg PO DAILY 06/12/18 06/25/18 History magnesium 400 mg PO DAILY 06/12/18 06/25/18 History melatonin 5 mg PO HS PRN 06/12/18 06/25/18 History multivitamin [Daily Multi-Vitamin] 1 tab PO DAILY 06/12/18 06/25/18 History pregabalin [Lyrica] 150 mg PO BID 06/12/18 06/25/18 History ranitidine HCl 150 mg PO BID 06/12/18 06/25/18 History sertraline 100 mg PO DAILY 06/12/18 06/25/18 History terazosin 5 mg PO TID 06/12/18 06/25/18 History tramadol 50 mg PO Q4-6H PRN 06/12/18 06/25/18 History Exam Vital signs: Vital Signs 06/25/18 07:06 06/25/18 10:45 06/25/18 11:00 Temperature 98.8 F 97.7 F Pulse Rate 63 83 74 Respiratory Rate 18 18 21 Blood Pressure 142/75 H 128/75 140/78 Pulse Oximetry 97 96 96 06/25/18 11:15 06/25/18 11:30 06/25/18 12:00 Temperature 98.0 F 98 F Pulse Rate 68 67 67 Respiratory Rate 21 21 20 Blood Pressure 111/75 121/77 119/88 Pulse Oximetry 93 L 97 98 06/25/18 15:35 Temperature 98.8 F Pulse Rate 72 Respiratory Rate 22 Blood Pressure 128/62 Pulse Oximetry 99 Intake & Output 06/24/18 06/25/18 06/25/18 18:59 06:59 18:59 Intake Total 1914.3 / 1914.3 Output Total 200 / 200 Balance 1714.3 / 1714.3 Weight 95.5 kg 95.254 kg Intake: IV 1414.3 / 1414.3 LR 1000 mL Inj 1,000 ML @ 30 1000 / 1000 mls/hr IV.SIG .Q24H [facility] Rx#: [id number] Cyklokapron Inj 1,430 MG In NS 114.3 / 114.3 Inj 100 ML @ 200 mls/hr IV.SIG ONCE [facility] Rx#:[id number] Vancomycin Inj 1,000 MG In NS 250 / 250 Inj 250 ML @ 250 mls/hr IV.SIG HACK DRIVER [facility] Rx#:[id number] Ancef 2 GM Premix Inj 2 gm In 50 / 50 50 ml @ 100 mls/hr IV.SIG HACK DRIVER [facility] Rx#:[id number] Anesthesia Amount 500 / 500 Output: Estimated Blood Loss 200 / 200 Other: Weight On Admission 95.5 kg Narrative: GENERAL: WN, WD male sitting up in bed in NAD. SKIN: Warm and dry. HEENT: AT/NC. Pupils equal and round. MMM. HEART: RRR no m/r/g. LUNGS: CTAB without wheezes or crackles. ABDOMEN: +BS, soft, NT, ND. EXTREMITIES: Dressing over L knee. NEURO: Awake and alert. PSYCH: Appropriate mood and affect. Results - Labs Labs: Laboratory Results - last 24 hr 06/25/18 07:00 Blood Type A Positive Blood Type Recheck Not needed Antibody Screen Negative - Imaging Impressions Knee X-Ray 06/25/18 06:42 CONCLUSION: Status post total knee arthroplasty in anatomic alignment.. Adrian Yepez MD FACR Assessment and Plan - Assessment (1) Status post total knee replacement, left Code(s): Z96.652 - Presence of left artificial knee joint Status: Acute (2) Hypertension Code(s): I10 - Essential (primary) hypertension Status: Chronic (3) BPH (benign prostatic hyperplasia) Code(s): N40.0 - Benign prostatic hyperplasia without lower urinary tract symptoms Status: Chronic (4) GERD (gastroesophageal reflux disease) Code(s): K21.9 - Gastro-esophageal reflux disease without esophagitis Status: Chronic (5) Hypothyroid Code(s): E03.9 - Hypothyroidism, unspecified Status: Chronic - Plan 67 YOWM with history of HTN, BPH, hypothyroidism, depression, chronic pain, OA, and CIPD admitted for elective L total knee arthroplasty. Hospitalist consulted for medical management. 1. HTN - BP stable - Resume home Lisinopril 2. BPH - Resume home terazosin 3. Hypothyroidism - Resume home levothyroxine 4. Depression - Resume home bupropion and sertraline 5. Chronic pain, CIDP - Resume home Lyrics 6. S/P L total knee arthroplasty - Management per ortho surgery - Planning on rehab on discharge 7. GERD - Resume home ranitidine DVT prophylaxis: per ortho Patient is medically stable. Will sign off at this time. Please reconsult if there are any further questions or issues that arise. Discussed Condition With: Patient Discharge Planning: Per ortho (2) Hypertension Qualifiers: Hypertension type: essential hypertension Qualified Code(s): I10 - Essential (primary) hypertension (3) BPH (benign prostatic hyperplasia) Qualifiers: Lower urinary tract symptom detail: urinary retention (4) GERD (gastroesophageal reflux disease) Qualifiers: Esophagitis presence: without esophagitis Qualified Code(s): K21.9 - Gastro- esophageal reflux disease without esophagitis (5) Hypothyroid Qualifiers: Hypothyroidism type: acquired Qualified Code(s): E03.9 - Hypothyroidism, unspecified
[2018-06-25] MEDS: Pregabalin 75 MG Capsule PO SCH (20:49)
[2018-06-25] MEDS: Multivitamin/Minerals Therapeutic Tablet PO SCH ×2 (20:50→21:00)
[2018-06-25] MEDS: Senna/Docusate Sodium 8.6/50 MG Tablet PO SCH (20:50)
[2018-06-25] MEDS: Famotidine 20 MG Tablet PO SCH (20:51)
[2018-06-25] MEDS ORDERED: Melatonin 5 MG Tablet PO PRN (21:00)
[2018-06-26] MEDS: ceFAZolin Inj 2,000 MG in Sodium Chlor 0.9% Inj 100 ML IV.SIG SCH (01:41)
[2018-06-26] MEDS: HYDROmorphone PF Inj 2 MG/ML Vial IV.PUSH PRN ×2 (05:07→22:23)
[2018-06-26] MEDS: Levothyroxine 125 MCG Tablet PO SCH (05:08)
[2018-06-26 06:37] LABS: Hematocrit 26.1 % (39.0-51.0); Hemoglobin 9.2 gm/dL (13.0-17.0)
[2018-06-26 06:51] LABS: Calcium 7.6 mg/dL (8.5-10.1); Carbon Dioxide 27.4 meq/L (21.0-32.0); Potassium 3.5 meq/L (3.5-5.1)
[2018-06-26] MEDS: Sertraline 100 MG Tablet PO SCH (08:25)
[2018-06-26] MEDS: Senna/Docusate Sodium 8.6/50 MG Tablet PO SCH ×2 (08:26→22:15)
[2018-06-26] MEDS: Multivitamin/Minerals Therapeutic Tablet PO SCH ×2 (08:26→22:16)
[2018-06-26] MEDS: Famotidine 20 MG Tablet PO SCH ×2 (08:26→22:16)
--- NOTE | 2018-06-26 08:26 | P.PNOP ---
Subjective Interval history: pain better this am. Physical Exam Vital signs: Vital Signs 06/25/18 10:45 06/25/18 11:00 06/25/18 11:15 Temperature 97.7 F Pulse Rate 83 74 68 Respiratory Rate 18 21 21 Blood Pressure 128/75 140/78 111/75 Pulse Oximetry 96 96 93 L 06/25/18 11:30 06/25/18 12:00 06/25/18 15:35 Temperature 98.0 F 98 F 98.8 F Pulse Rate 67 67 72 Respiratory Rate 21 20 22 Blood Pressure 121/77 119/88 128/62 Pulse Oximetry 97 98 99 06/25/18 20:00 06/26/18 00:00 06/26/18 04:00 Temperature 98.2 F 97.8 F 98.3 F Pulse Rate 54 L 60 57 L Respiratory Rate 20 17 17 Blood Pressure 117/63 117/57 L 127/60 Pulse Oximetry 97 95 96 Intake & Output 06/25/18 06/26/18 06/26/18 18:59 06:59 18:59 Intake Total 1914.3 / 1914.3 240 / 240 Output Total 200 / 200 900 / 900 Balance 1714.3 / 1714.3 -660 / -660 Weight 95.254 kg Intake: IV 1414.3 / 1414.3 240 / 240 LR 1000 mL Inj 1,000 ML @ 30 1000 / 1000 mls/hr IV.SIG .Q24H [facility] Rx#: [id number] Cyklokapron Inj 1,430 MG In NS 114.3 / 114.3 Inj 100 ML @ 200 mls/hr IV.SIG ONCE [facility] Rx#:[id number] Vancomycin Inj 1,000 MG In NS 250 / 250 Inj 250 ML @ 250 mls/hr IV.SIG [employer] [facility] Rx#:[id number] Ancef 2 GM Premix Inj 2 gm In 50 / 50 50 ml @ 100 mls/hr IV.SIG [employer] [facility] Rx#:[id number] Ancef Inj 2,000 MG In NS Inj 240 / 240 100 ML @ 240 mls/hr IV.SIG Q6H [facility] Rx#:[id number] Anesthesia Amount 500 / 500 Output: Estimated Blood Loss 200 / 200 Urine Amount (Catheter) 900 / 900 Straight 900 / 900 Other: # Voids 1 Date of Last Bowel Movement 06/24/18 Narrative: in bed, nad dressing c/d/i neg homans - Urinary Catheter Management Straight Cath placed during this visit: yes, but has since been removed by the nurse Reason for continuing: Not indwelling catheter Insertion date: 06/26/18 Insertion time: 04:30 Removal time: 04:55 Results - Labs CBC & Chem 7: 06/26/18 04:50 06/26/18 04:50 Laboratory Results - last 24 hr 06/25/18 06/26/18 06/26/18 07:00 04:50 04:50 Hgb 9.2 L Hct 26.1 L Sodium 134 L Potassium 3.5 Chloride 99 Carbon Dioxide 27.4 Anion Gap 8 BUN 23 H Creatinine 1.09 Estimated GFR 67 L Random Glucose 83 Calcium 7.6 L Antibody Screen Negative - Imaging Impressions Knee X-Ray 06/25/18 06:42 CONCLUSION: Status post total knee arthroplasty in anatomic alignment.. Adrian Yepez MD FACR Assessment and Plan - Ortho Post Op Day # 1 - Assessment and Plan s/p L TKA wbat ok to maintain dressings unless saturated asa 81 fall precautions d/c planning to snf - Wed if authorized by insurance f/up dr. arroyo 2 weeks
[2018-06-26] MEDS: buPROPion 75 MG Tablet PO SCH ×3 (08:27→19:33)
[2018-06-26] MEDS: Pregabalin 75 MG Capsule PO SCH ×2 (08:27→22:16)
[2018-06-26] MEDS: Lisinopril 10 MG Tablet PO SCH (08:36)
[2018-06-26] MEDS ORDERED: Sodium Chlor 0.9% Inj 500 ML IV.SIG ONE (13:47)
--- NOTE | 2018-06-26 13:57 | P.PN ---
Subjective Interval history: follow up for urinary retention, low blood pressure, s/p LTK: pt. seen and examined. Urinary retention overnight, straight cathed x 2, approx 800 cc drained, doesn't have urge to void. Takes Terazosin at home 5 mg po TID for many years. Cath now inserted. Draining well. No bm x 2 days, feels constipated. Low bp today, 99/54, felt dizzy when out of bed. Feels tired, has not slept well. No CP, no SOB, no N/V/D, appetite fair. Left knee pain Physical Exam Vital signs: Vital Signs 06/25/18 15:35 06/25/18 20:00 06/26/18 00:00 Temperature 98.8 F 98.2 F 97.8 F Pulse Rate 72 54 L 60 Respiratory Rate 22 20 17 Blood Pressure 128/62 117/63 117/57 L Pulse Oximetry 99 97 95 06/26/18 04:00 06/26/18 09:24 06/26/18 10:00 Temperature 98.3 F 98 F Pulse Rate 57 L 67 Respiratory Rate 17 17 18 Blood Pressure 127/60 108/55 L Pulse Oximetry 96 96 06/26/18 12:00 Temperature 97.8 F Pulse Rate 59 L Respiratory Rate 17 Blood Pressure 99/54 L Pulse Oximetry 94 L Intake & Output 06/25/18 06/26/18 06/26/18 18:59 06:59 18:59 Intake Total 1914.3 / 1914.3 1360 / 1360 Output Total 200 / 200 1750 / 1750 Balance 1714.3 / 1714.3 -390 / -390 Weight 95.254 kg Intake: IV 1414.3 / 1414.3 1360 / 1360 LR 1000 mL Inj 1,000 ML @ 80 1000 / 1000 mls/hr IV.CONT .[id number] [facility] Rx# :[id number] LR 1000 mL Inj 1,000 ML @ 30 1000 / 1000 mls/hr IV.SIG .Q24H [facility] Rx#: [id number] Cyklokapron Inj 1,430 MG In NS 114.3 / 114.3 Inj 100 ML @ 200 mls/hr IV.SIG ONCE [facility] Rx#:[id number] Vancomycin Inj 1,000 MG In NS 250 / 250 Inj 250 ML @ 250 mls/hr IV.SIG PIN SORTER AND BAGGER [facility] Rx#:[id number] Ancef 2 GM Premix Inj 2 gm In 50 / 50 50 ml @ 100 mls/hr IV.SIG PIN SORTER AND BAGGER [facility] Rx#:[id number] Ancef Inj 2,000 MG In NS Inj 360 / 360 100 ML @ 240 mls/hr IV.SIG Q6H [facility] Rx#:[id number] Anesthesia Amount 500 / 500 Output: Estimated Blood Loss 200 / 200 Urine Amount (Catheter) 1750 / 1750 Straight 1750 / 1750 Other: # Voids 1 Date of Last Bowel Movement 06/24/18 06/24/18 Narrative: GENERAL: WN, WD male sitting up in bed in NAD. SKIN: Warm and dry. HEENT: AT/NC. Pupils equal and round. MMM. HEART: RRR no m/r/g. LUNGS: CTAB without wheezes or crackles. ABDOMEN: +BS, soft, NT, ND. EXTREMITIES: Dressing over L knee. NEURO: Awake and alert. PSYCH: Appropriate mood and affect. - Urinary Catheter Management Straight Cath placed during this visit: yes, but has since been removed by the nurse Reason for continuing: Acute urinary retention Insertion date: 06/26/18 Insertion time: 10:30 Removal time: 04:55 Results - Labs CBC & Chem 7: 06/26/18 04:50 06/26/18 04:50 Laboratory Results - last 24 hr 06/26/18 06/26/18 04:50 04:50 Hgb 9.2 L Hct 26.1 L Sodium 134 L Potassium 3.5 Chloride 99 Carbon Dioxide 27.4 Anion Gap 8 BUN 23 H Creatinine 1.09 Estimated GFR 67 L Random Glucose 83 Calcium 7.6 L Assessment and Plan - Assessment (1) Status post total knee replacement, left Code(s): Z96.652 - Presence of left artificial knee joint Status: Acute (2) Hypertension Code(s): I10 - Essential (primary) hypertension Status: Chronic (3) BPH (benign prostatic hyperplasia) Code(s): N40.0 - Benign prostatic hyperplasia without lower urinary tract symptoms Status: Chronic (4) GERD (gastroesophageal reflux disease) Code(s): K21.9 - Gastro-esophageal reflux disease without esophagitis Status: Chronic (5) Hypothyroid Code(s): E03.9 - Hypothyroidism, unspecified Status: Chronic - Plan 67 YOWM with history of HTN, BPH, hypothyroidism, depression, chronic pain, OA, and CIPD admitted for elective L total knee arthroplasty. Hospitalist consulted for medical management. HTN Hypotensive this morning and last evening - add hold parameters for lisinopril. Held this morning Hypotension -hold Lisinopril -give NS 500 cc bolus BPH now with urinary retention, straight cathed x 2, now has encinas. Likely combination of anesthesia, no BM x 2 days. - continue terazosin, takes 5 mg po tid -encinas for now, will have RN dc at 1500 and monitor for voiding Hypothyroidism - continue levothyroxine 'Depression - continue home bupropion and sertraline Chronic pain, CIDP - Continue Lyrics S/P L total knee arthroplasty - Management per ortho surgery - Planning on rehab on discharge -HH stable GERD -continue ranitidine DVT prophylaxis: per ortho HH stable continue bowel regimen, will have RN given MOM now Code Status: Full code Discussed Condition With: pt, churn driller Planning: per primary care team (2) Hypertension Qualifiers: Hypertension type: essential hypertension Qualified Code(s): I10 - Essential (primary) hypertension (3) BPH (benign prostatic hyperplasia) Qualifiers: Lower urinary tract symptom detail: urinary retention (4) GERD (gastroesophageal reflux disease) Qualifiers: Esophagitis presence: without esophagitis Qualified Code(s): K21.9 - Gastro- esophageal reflux disease without esophagitis (5) Hypothyroid Qualifiers: Hypothyroidism type: acquired Qualified Code(s): E03.9 - Hypothyroidism, unspecified
[2018-06-26 18:40] VITALS: RESP 18
[2018-06-26 22:35] VITALS: PULSE 75
[2018-06-27] MEDS ORDERED: Phenol 1.4% 180 ML Spray Bottle OROPHARYNG PRN (01:00)
[2018-06-27] MEDS ORDERED: ChlorproMAZINE 25 MG Tablet PO ONE (01:03)
[2018-06-27] MEDS: Levothyroxine 125 MCG Tablet PO SCH (06:26)
--- NOTE | 2018-06-27 07:50 | P.PNOP ---
Subjective Interval history: painful. urinating without difficulty now. Physical Exam Vital signs: Vital Signs 06/26/18 09:24 06/26/18 10:00 06/26/18 12:00 Temperature 98 F 97.8 F Pulse Rate 67 59 L Respiratory Rate 17 18 17 Blood Pressure 108/55 L 99/54 L Pulse Oximetry 96 94 L 06/26/18 16:00 06/26/18 18:40 06/26/18 20:00 Temperature 97.9 F 99.5 F Pulse Rate 62 75 Respiratory Rate 17 18 18 Blood Pressure 102/63 141/67 H Pulse Oximetry 96 95 06/26/18 20:03 06/26/18 22:53 06/27/18 00:00 Temperature 98.2 F Pulse Rate 75 Respiratory Rate 18 18 18 Blood Pressure 119/62 Pulse Oximetry 98 06/27/18 06:26 Temperature Pulse Rate Respiratory Rate 18 Blood Pressure Pulse Oximetry Intake & Output 06/26/18 06/27/18 06/27/18 18:59 06:59 18:59 Output Total 1025 / 1025 1939 / 1940 Balance -1025 / -1025 -1940 / -1940 Output: Urine 300 / 300 1939 / 1940 Urine Amount (Catheter) 725 / 725 Indwelling Urethral Catheter 725 / 725 Other: Date of Last Bowel Movement 06/24/18 07/24/18 Narrative: in bed, nad dressing c/d/i neg homans mild swelling knee - Urinary Catheter Management Straight Cath placed during this visit: yes, but has since been removed by the nurse Reason for continuing: Acute urinary retention Insertion date: 06/26/18 Insertion time: 10:30 Removal time: 04:55 Indwelling Urethral Catheter Cath placed during this visit: yes, but has since been removed by the nurse Reason for continuing: Not indwelling catheter Insertion date: 06/26/18 Insertion time: 10:15 Removal date: 06/26/18 Removal time: 15:30 Results - Labs CBC & Chem 7: 06/26/18 04:50 06/26/18 04:50 Assessment and Plan - Ortho Post Op Day # 2 - Assessment and Plan s/p L TKA wbat ok to maintain dressings unless saturated asa 81 pain control urinating without difficulty still needs to have BM fall precautions d/c planning to snf - Wed if cleared by med f/up dr. arroyo 2 weeks
[2018-06-27] MEDS: Lisinopril 10 MG Tablet PO SCH (08:46)
[2018-06-27] MEDS: Senna/Docusate Sodium 8.6/50 MG Tablet PO SCH ×2 (08:46→08:47)
[2018-06-27] MEDS: Famotidine 20 MG Tablet PO SCH ×2 (08:46→08:47)
[2018-06-27] MEDS: Pregabalin 75 MG Capsule PO SCH (08:47)
[2018-06-27] MEDS: Sertraline 100 MG Tablet PO SCH (08:47)
[2018-06-27] MEDS: Multivitamin/Minerals Therapeutic Tablet PO SCH (08:47)
[2018-06-27] MEDS: buPROPion 75 MG Tablet PO SCH ×2 (08:47→12:19)
[2018-06-27 09:58] VITALS: BP 128/71; TEMP 99; O2SAT 95
--- NOTE | 2018-06-27 12:07 | P.PNIM ---
Subjective Interval history: 67-year-old male with history of hypertension, BPH, hypothyroidism, depression, osteoarthritis, and CIDP admitted for elective left total knee arthroplasty. Hospitalist service has been consulted for medical management. Patient seen postoperatively up on the floor. He denies any acute complaints and states his pain is well controlled. His only concern is restarting his terazosin because he states he has difficulty urinating without it. He denies any chest pain, shortness of breath, abdominal pain, nausea, vomiting, rash, dysuria, or edema. 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 He is planning on going to rehab on discharge. 10-2 follow up for urinary retention, low blood pressure, s/p LTK: pt. seen and examined. Urinary retention overnight, straight cathed x 2, approx 800 cc drained, doesn't have urge to void. Takes Terazosin at home 5 mg po TID for many years. Cath now inserted. Draining well. No bm x 2 days, feels constipated. Low bp today, 99/54, felt dizzy when out of bed. Feels tired, has not slept well. No CP, no SOB, no N/V/D, appetite fair. Left knee pain 10-3 GOING TO SNF TODAY DW RN AND PT AND CM OK FOR SNF TODAY Physical Exam Vital signs: Vital Signs 06/26/18 16:00 06/26/18 18:40 06/26/18 20:00 Temperature 97.9 F 99.5 F Pulse Rate 62 75 Respiratory Rate 17 18 18 Blood Pressure 102/63 141/67 H Pulse Oximetry 96 95 06/26/18 20:03 06/26/18 22:53 06/27/18 00:00 Temperature 98.2 F Pulse Rate 75 Respiratory Rate 18 18 18 Blood Pressure 119/62 Pulse Oximetry 98 06/27/18 06:26 06/27/18 08:00 Temperature 99.0 F Pulse Rate 75 Respiratory Rate 18 18 Blood Pressure 128/71 Pulse Oximetry 95 Intake & Output 06/26/18 06/27/18 06/27/18 18:59 06:59 18:59 Output Total 1025 / 1025 1939 Balance -1025 / -1025 -1939 Output: Urine 300 / 300 1939 Urine Amount (Catheter) 725 / 725 Indwelling Urethral Catheter 725 / 725 Other: Date of Last Bowel Movement 06/24/18 07/24/18 Narrative: GENERAL: WN, WD male sitting up in bed in NAD. SKIN: Warm and dry. HEENT: AT/NC. Pupils equal and round. MMM. HEART: RRR no m/r/g. LUNGS: CTAB without wheezes or crackles. ABDOMEN: +BS, soft, NT, ND. EXTREMITIES: Dressing over L knee. NEURO: Awake and alert. PSYCH: Appropriate mood and affect. - Urinary Catheter Management Straight Cath placed during this visit: yes, but has since been removed by the nurse Reason for continuing: Acute urinary retention Insertion date: 06/26/18 Insertion time: 10:30 Removal time: 04:55 Indwelling Urethral Catheter Cath placed during this visit: yes, but has since been removed by the nurse Reason for continuing: Not indwelling catheter Insertion date: 06/26/18 Insertion time: 10:15 Removal date: 06/26/18 Removal time: 15:30 Results - Labs CBC & Chem 7: 06/26/18 04:50 06/26/18 04:50 - Imaging ITS Impressions Knee X-Ray 06/25/18 06:42 CONCLUSION: Status post total knee arthroplasty in anatomic alignment.. Adrian Yepez MD FACR - Procedures DATE OF OPERATION: 06/25/2018 PREOPERATIVE DIAGNOSIS: Left knee osteoarthritis. POSTOPERATIVE DIAGNOSIS: Left knee osteoarthritis. PROCEDURE: Left total knee arthroplasty. SURGEON: Bao Christianson MD FRONT DESK MANAGER: SCOTT Gurrola. ANESTHESIA: General with femoral nerve adductor canal block. ESTIMATED BLOOD LOSS: Less than 50 mL. TOURNIQUET TIME: 37 minutes at 250 mmHg. COMPLICATIONS: None. IMPLANTS USED: DePuy Attune size 7 posterior stabilized femoral component, size 7 rotating platform tibial baseplate, size 6 mm polyethylene tibia insert, size 38 patella. JUSTIFICATIONS: The patient is a 67-year-old male with a history of severe osteoarthritis involving the left knee joint. He has severe disabling pain with standing, walking, ambulation, weightbearing activities and severe pain at rest, it does interfere with activities of daily living. He has failed greater than 3 months of nonoperative conservative treatment to include medication therapy, injections, ambulatory assistive aides, home exercise program, activity modification and weight loss. X-rays left knee reveal severe osteoarthritis with joint space narrowing, subchondral sclerosis, subchondral cyst, osteophyte formation with subluxation. The patient was counseled on risks, benefits and alternatives to a total knee arthroplasty. The risks were discussed, which include, but are not limited to anesthesia, bleeding, infection, damage to nerves and blood vessels, pain, stiffness, failure of hardware, blood clots, pulmonary embolism and even . The patient's pain is severe. He favored the benefits over the risks. He did wish to proceed with surgery. PROCEDURE IN DETAIL: Written consent was obtained. The patient was identified by name, taken to the operating room and placed supine on the operating table. General anesthesia was administered as well as 2 grams of IV Ancef and 1 gram of IV vancomycin. A well-padded tourniquet was placed on the left thigh. The left lower extremity prepped and draped using isopropyl alcohol, Hibiclens solution and ChloraPrep solution. After a timeout was performed, an Esmarch bandage was used to exsanguinate the left lower extremity with tourniquet inflated to 250 mmHg. A longitudinal incision was made to the anterior aspect of the left knee. Medial parapatellar arthrotomy was performed. The patella was everted. A patellar resection guide was used to resect 9 mm of the patella; a size 38 mm guide was placed. Three drill holes were placed and a 38 mm trial fit well. Attention turned to the femur. Intramedullary guide was placed. The distal femoral guide was set to remove 11 mm of distal femur, 5 degrees off the anatomic valgus axis alignment. An oscillating saw was used to perform the distal femoral cut. Attention was turned to the tibia. An extramedullary tibial guide was set to remove 6 mm of the lowest portion of the medial tibial plateau. The tibia guide was pinned in place and tibia cut was performed. A 5 mm spacer block showed full extension. Attention was turned back to the femur. AP sizing block measured to a size 7. The anterior reference 3-degree external rotation guide was used to pin a size 7 block was placed. The anterior, posterior chamfer cuts were performed. A size 7 PCL box was pinned in place and the PCL was approximated with an oscillating saw. The medial and lateral meniscus remnants were removed as well as bone and soft tissue debris from the posterior portion of the knee. A size 7 tibia baseplate was pinned in place and tibia was drilled and punched. Trial components were evaluated and the final components were cemented in place. With the current components the leg achieved full extension to 0-degrees and flexion to 140. No evidence of tibial liftoff. Varus valgus balance appeared appropriate and symmetric. With the tourniquet deflated, Bovie cautery was used for hemostasis. The surgical wound was thoroughly irrigated with sterile saline, pulse lavage, pulse lavage, antibiotic impregnated solution. The arthrotomy incision was closed with #1-Vicryl suture, subcutaneous layer with 2-0 Vicryl suture and the skin was closed with Dermabond. Sterile dressing applied. The patient tolerated the procedure well. No intraoperative complications noted. Otto Hall, Physician Community Development Officer-Certified was present for the entire procedure to include patient positioning and the procedure itself. The medical necessity of the physician special event assistant was indicated in this case due to the complexity of the procedure. He assisted with appropriate manipulation of the leg and also retraction muscles, tendon, bone and neurovascular structures. He assisted in preparation of bone and also implantation of the prosthetic replacement. Bao Christianson MD Assessment and Plan - Assessment (1) Status post total knee replacement, left Code(s): Z96.652 - Presence of left artificial knee joint Status: Acute (2) Hypertension Code(s): I10 - Essential (primary) hypertension Status: Chronic (3) BPH (benign prostatic hyperplasia) Code(s): N40.0 - Benign prostatic hyperplasia without lower urinary tract symptoms Status: Chronic (4) GERD (gastroesophageal reflux disease) Code(s): K21.9 - Gastro-esophageal reflux disease without esophagitis Status: Chronic (5) Hypothyroid Code(s): E03.9 - Hypothyroidism, unspecified Status: Chronic - Plan 67 YOWM with history of HTN, BPH, hypothyroidism, depression, chronic pain, OA, and CIPD admitted for elective L total knee arthroplasty. Hospitalist consulted for medical management. HTN Hypotensive this morning and last evening - add hold parameters for lisinopril. Held this morning Hypotension -hold Lisinopril -give NS 500 cc bolus BPH now with urinary retention, straight cathed x 2, now has encinas. Likely combination of anesthesia, no BM x 2 days. - continue terazosin, takes 5 mg po tid -encinas for now, will have RN dc at 1500 and monitor for voiding Hypothyroidism - continue levothyroxine 'Depression - continue home bupropion and sertraline Chronic pain, CIDP - Continue Lyrics S/P L total knee arthroplasty - Management per ortho surgery - Planning on rehab on discharge -HH stable GERD -continue ranitidine DVT prophylaxis: per ortho HH stable continue bowel regimen, will have RN given MOM now Code Status: FULL CODE Discussed Condition With: RN AND PT AND CM Discharge Planning: DC TO [facility] TODAY (2) Hypertension Qualifiers: Hypertension type: essential hypertension Qualified Code(s): I10 - Essential (primary) hypertension (3) BPH (benign prostatic hyperplasia) Qualifiers: Lower urinary tract symptom detail: urinary retention (4) GERD (gastroesophageal reflux disease) Qualifiers: Esophagitis presence: without esophagitis Qualified Code(s): K21.9 - Gastro- esophageal reflux disease without esophagitis (5) Hypothyroid Qualifiers: Hypothyroidism type: acquired Qualified Code(s): E03.9 - Hypothyroidism, unspecified
== END 2018-06-27 11:45 ==
LOC: HSDI 06:14 → N06 11:48
PROVIDERS: ADMIT Orthopaedic Surgery Sports Medicine; ATTEND Orthopaedic Surgery Sports Medicine